=== PATIENT | female | born 1945 | race Caucasian/White ===

== ENCOUNTER → 2016-04-14 | Outpatient (CLI) | payer OTHER, MEDICARE | END | disposition home or self-care (01) | LOC: C.LABSPEC 12:03 | PROVIDERS: ATTEND Family Medicine | DX: Z12.11 Encounter for screening for malignant neoplasm of colon (principal) ==

== ENCOUNTER → 2016-05-06 | Outpatient (CLI) | payer OTHER, MEDICARE ==
[2016-05-06 12:06] LABS: HEMATOCRIT 40.7 % (37-47); MEAN CELL VOLUME 87.3 fL (80-100); MEAN CORPUSCULAR HEMOGLOBIN 30.5 pg (25-34); MEAN CORPUSCULAR HGB CONC 34.9 g/dl (32-36); MEAN PLATELET VOLUME 9.5 fL (7.4-10.4); PLATELET COUNT 235 K/uL (130-400); RED BLOOD COUNT 4.66 M/uL (4.2-5.4); WHITE BLOOD COUNT 5.23 K/uL (4.8-10.8)
[2016-05-06 12:32] LABS: ESTIMATED AVERAGE GLUCOSE 140 mg/dl; HA1C FLAG Normal (Normal)
[2016-05-06 12:36] LABS: ALT/SGPT 47 U/L (12-78); AST/SGOT 23 U/L (15-37); BLOOD UREA NITROGEN 12 mg/dl (7-18); BUN/CREATININE RATIO 11.2 (10-20); CALCIUM 8.8 mg/dl (8.5-10.1); CARBON DIOXIDE 27 mmol/L (21-32); CHLORIDE 103 mmol/L (98-107); CHOLESTEROL 115 mg/dl (0-200); GLUCOSE 96 mg/dl (70-99); POTASSIUM 3.7 mmol/L (3.5-5.1); SODIUM 139 mmol/L (136-145)
[2016-05-06 12:38] LABS: ALB/GLOB RATIO 1.1 (0.9-2); ALKALINE PHOSPHATASE 70 U/L (45-117); CHOLESTEROL/HDL RATIO 3.3; HDL CHOLESTEROL 35 mg/dl; LDL CHOLESTEROL CALCULATED 5 mg/dl; TRIGLYCERIDES 373 mg/dl (0-150); VERY LOW DENSITY LIPOPROT CALC 75 mg/dl
== END | disposition home or self-care (01) ==
LOC: C.LAB 11:13
PROVIDERS: ATTEND Nurse Practitioner Adult Health
DX: E11.9 Type 2 diabetes mellitus without complications (principal); Z11.59 Encounter for screening for other viral diseases; E78.5 Hyperlipidemia, unspecified; I10 Essential (primary) hypertension

== ENCOUNTER → 2016-10-16 | Outpatient (CLI) | payer OTHER, MEDICARE ==
[2016-10-16 12:39] LABS: ALT/SGPT 27 U/L (12-78); AST/SGOT 15 U/L (15-37); BLOOD UREA NITROGEN 23 mg/dl (7-18); BUN/CREATININE RATIO 22.8 (10-20); CALCIUM 9.1 mg/dl (8.5-10.1); CARBON DIOXIDE 28 mmol/L (21-32); CHLORIDE 104 mmol/L (98-107); CHOLESTEROL 188 mg/dl (0-200); GLUCOSE 108 mg/dl (70-99); POTASSIUM 3.8 mmol/L (3.5-5.1); SODIUM 140 mmol/L (136-145); TRIGLYCERIDES 524 mg/dl (0-150)
[2016-10-16 12:40] LABS: ESTIMATED AVERAGE GLUCOSE 126 mg/dl; HA1C FLAG Normal (Normal)
[2016-10-16 12:52] LABS: ALB/GLOB RATIO 1.1 (0.9-2); ALKALINE PHOSPHATASE 75 U/L (45-117); CHOLESTEROL/HDL RATIO 4.8; HDL CHOLESTEROL 39 mg/dl; THYROID STIMULATING HORMONE 0.497 uIu/ml (0.300-4.500)
== END | disposition home or self-care (01) ==
LOC: C.LABPBG 09:23
PROVIDERS: ATTEND Family Medicine
DX: E11.9 Type 2 diabetes mellitus without complications (principal)

== ENCOUNTER → 2017-05-15 | Outpatient (CLI) | payer OTHER, MEDICARE ==
[2017-05-15 12:53] LABS: ALBUMIN 3.9 gm/dl (3.4-5.0); ALT/SGPT 31 U/L (12-78); AST/SGOT 15 U/L (15-37); BLOOD UREA NITROGEN 27 mg/dl (7-18); CALCIUM 9.1 mg/dl (8.5-10.1); CARBON DIOXIDE 26 mmol/L (21-32); CREATININE 1.27 mg/dl (0.60-1.20); GLUCOSE 112 mg/dl (70-99); POTASSIUM 3.7 mmol/L (3.5-5.1); SODIUM 137 mmol/L (136-145)
[2017-05-15 12:59] LABS: HEMOGLOBIN A1C 5.9 % (4.5-5.6)
[2017-05-15 13:03] LABS: ALKALINE PHOSPHATASE 93 U/L (45-117); CHOLESTEROL 115 mg/dl (0-200); LDL CHOLESTEROL CALCULATED 30 mg/dl; TOTAL PROTEIN 7.8 gm/dl (6.4-8.2)
== END | disposition home or self-care (01) ==
LOC: C.LABPBG 08:41
PROVIDERS: ATTEND Family Medicine
DX: E11.9 Type 2 diabetes mellitus without complications (principal); I10 Essential (primary) hypertension; E78.5 Hyperlipidemia, unspecified

== ENCOUNTER → 2017-05-16 | Outpatient (CLI) | payer OTHER, MEDICARE ==
[2017-05-16 16:01] LABS: CREATININE RANDOM URINE 90.2 mg/dl
== END | disposition home or self-care (01) ==
LOC: C.LABSPEC 09:34
PROVIDERS: ATTEND Family Medicine
DX: E11.9 Type 2 diabetes mellitus without complications (principal); I10 Essential (primary) hypertension; E78.5 Hyperlipidemia, unspecified

== ENCOUNTER → 2017-06-06 | Outpatient (CLI) | payer OTHER, MEDICARE ==
[2017-06-06 14:52] LABS: BLOOD UREA NITROGEN 19 mg/dl (7-18); CALCIUM 9.1 mg/dl (8.5-10.1); CARBON DIOXIDE 28 mmol/L (21-32); CREATININE 1.17 mg/dl (0.60-1.20); GLUCOSE 121 mg/dl (70-99); POTASSIUM 4.1 mmol/L (3.5-5.1); SODIUM 140 mmol/L (136-145)
== END | disposition home or self-care (01) ==
LOC: C.LABPBG 07:55
PROVIDERS: ATTEND Family Medicine
DX: E11.9 Type 2 diabetes mellitus without complications (principal); I10 Essential (primary) hypertension

== ENCOUNTER 2022-05-14 11:27 | Inpatient (IN) ==
[2022-05-14] MEDS ORDERED: SODIUM CHLORIDE 0.9% 500 ML IV ONE ×2 (12:00→14:46)
[2022-05-14] MEDS ORDERED: OPTIRAY 320 500ml IV ONE (12:13)
[2022-05-14 12:18] LABS: iSTAT Creatinine 1.2 mg/dl (0.6-1.3); iSTAT Hemoglobin 13.9 g/dl (12.0-16.0); iSTAT Ionized Calcium 1.15 mmol/l (1.12-1.32); iSTAT Potassium 3.6 mmol/L (3.3-5.0)
--- NOTE | 2022-05-14 12:21 | Emergency Department Note ---
Impression & Plan Hypertensive emergency, Dementia, Nausea & vomiting ED Provider Note NAME: DON JACKSON AGE: 77 SEX: F ARRIVES VIA: Walk-In INFORMANT: Patient ED PROVIDER(S): Dewey Baumann MD CHIEF COMPLAINT: Confusion PLAN: Disposition: Admit MEDICAL DECISION MAKING: The patient is a pleasant 77-year-old woman with a past medical history of vascular dementia, type 2 diabetes, resistant hypertension, CKD, hallucinations, depression, anxiety who presents to the emergency department via walk-in, accompanied by her daughter for evaluation of acute change in mental status where they were eating breakfast after going to a routine appointment with the patient's jackspooler and they were eating breakfast and suddenly the patient had difficulty using her fork and grabbed it backwards simply bumping it against her mouth and then was putting her hand directly into the food. She had trouble speaking/finding words and had some mumbling all has never happened before even with her vascular dementia. The patient's daughter then reported that she was concerned and wanted to get her to the hospital and so had to help her get up and she walked very slowly putting a lot of her weight leaning against her daughter but was able to ambulate. The patient follows with neurology for her dementia/vascular dementia and on recent visit in February note was made of change in walking, feeling wobbly trouble holding things in intermittent episodes where she cannot think of what to do next. She also has had more action tremors. On arrival to emergency department the patient is no acute distress, afebrile blood pressure 210s/70s and vital signs otherwise stable. She appears clinically dry. She has mild word finding difficulty/aphasia and difficulty explaining her symptoms. She has no focal extremity weakness or difficulty with coordination though does exhibit difficulty in following commands but with prompting and redirection is able to follow commands. Given the patient's acute change from her baseline per her daughter a stroke alert was activated to expedite her evaluation. However in the interim while going to CT and following IV fluid ration her symptoms resolved completely and had returned to her baseline. CT of the head and CT of the head and neck were otherwise unremarkable for acute findings. Chronic lacunar infarct of left thalamus is noted. EKG without overt acute ischemia. CXR negative for acute cardiopulmonary process. WBC, H/H and platelets within normal limits. Chemistry without metabolic acidosis. Creatinine 1.25, improved from prior values. Electrolytes without significant abnormality though magnesium 1.7, low normal and IV repletion provided. High-sensitivity troponin 4.6, within normal limits. UA without convincing evidence of infection. Covid-19 RNA, NAAT negative. Biofire negative. Unfortunate, the patient had a return of her confusion/symptoms and also nausea and vomiting and blood pressure was noted to again elevated to the 220s/100s. She was treated with additional hydration, APAP, Pepcid, Zofran. However, signficantly elevated blood pressure did persist Given the recurrence of the patient's symptoms which seem to possibly correlate with her spikes in her blood pressure suspicion for hypertensive roseanna rgency/hypertensive encephalopathy. The patient was additionally treated with IV Vasotec. Case was discussed with Dr. Ramos, [facility] [place] hospital[place], who will evaluate the patient for admission. Further management per admitting team. Triage Nursing notes reviewed and agree them. Prior/outside medical records reviewed Vital Signs: reviewed Differential diagnosis: Infection, dehydration, metabolic abnormality, hypo/hyperglycemia, electrolyte disturbance, anemia, hypoxia, cardiac sources, intracerebral event, toxicologic, neurologic, as well as other pathologies. ER treatment provided: See below. Diagnostics interpreted by me: ECG: Normal sinus rhythm, 74 bpm, no ectopy, no overt ST elevation or depression, QTc 495, QRS 76 Cardiac Monitoring: An order for continuous cardiac monitoring was placed and demonstrated Normal sinus rhythm, 74 bpm, no ectopy. Laboratory studies: See below Imaging studies: See below Consultation(s): Dr. Ramos [facility] [place] hospitalist. HPI: The patient is a pleasant 77-year-old woman with a past medical history of vascular dementia, type 2 diabetes, resistant hypertension, CKD, hallucinations, depression, anxiety who presents to the emergency department via walk-in, accompanied by her daughter for evaluation of acute change in mental status where they were eating breakfast after going to a routine appointment with the patient's jackspooler and they were eating breakfast and suddenly the patient had difficulty using her fork and grabbed it backwards simply bumping it against her mouth and then was putting her hand directly into the food. She had trouble speaking/finding words and had some mumbling all has never happened before even with her vascular dementia. The patient's daughter then reported that she was concerned and wanted to get her to the hospital and so had to help her get up and she walked very slowly putting a lot of her weight leaning against her daughter but was able to ambulate. ROS: See above HPI for pertinent positives & negatives. A total of 10 systems reviewed and were otherwise negative. VITALS:See Below PHYSICAL EXAMINATION: GENERAL: Awake, alert, well-appearing, in no distress HENT: Normocephalic, atraumatic. Oropharynx with dry mucous membranes and otherwise unremarkable. EYES: Normal conjunctiva. Sclera non-icteric. EOMI. No nystamgus. PEARRL. NECK: Supple. No nuchal rigidity. FROM. No JVD. RESPIRATORY: Clear to auscultation. CARDIAC: Regular rate, normal rhythm. Extremities warm and well perfused. Pulses equal. ABDOMEN: Soft, non-distended. No tenderness to palpation. No rebound or guarding. No masses. RECTAL: Deferred. MUSCULOSKELETAL: Chest examination reveals no tenderness. The back is symmetrical on inspection without obvious abnormality. There is no CVA tenderness to palpation. No joint edema. LOWER EXTREMITIES: Calves are equal size bilaterally and non-tender. No edema. No discoloration. NEURO: Mild word finding difficulty/aphasia and difficulty explaining her symptoms. She has no focal extremity weakness or difficulty with coordination though does exhibit difficulty in following commands but with prompting and redirection is able to follow commands. SKIN: No rash or jaundice noted. ED COURSE: Critical Care: I have personally spent greater than 75 minutes of critical care time in the direct management of this patient. This includes bedside care, interpretation of diagnostic studies, and testing, discussion with consultants, patient, and family members, and other required patient management activities. This 75 minutes is in excess of all separately billable procedures. Dewey Baumann MD Past Med/Surg History Medical History AK (actinic keratosis) Allergic rhinitis Anemia due to chronic kidney disease Benign essential hypertension Chronic kidney disease, stage 4 (severe) Chronic sinusitis COVID-19 Depression with anxiety Diabetic neuropathy History of breast cancer (2004) L BREAST S/P LUMPECTOMY IN 2004, S/P TAMOXIFEN X3.5YRS. Hyperkalemia Hyperlipidemia Hyperuricemia Mild cognitive impairment Resistant hypertension Stage 3b chronic kidney disease Type 2 diabetes mellitus Urinary incontinence Vitamin B12 deficiency Vitamin D deficiency Surgical History History of cholecystectomy (2009) ONSET: SEP 2009 History of hysterectomy STILL W/ OVARIES History of lumpectomy (2004) BREAST SURGERY LUMPECTOMY FEB 2004, MAY 2004; L-BREAST History of sinus surgery History of tubal ligation Family History Father Coronary heart disease Dementia Family/Other Cardiac disorder SIBLING Mother Breast cancer Diabetes Dementia Denies family history of Colon cancer Ovarian cancer Prostate cancer Myocardial infarction Lung cancer Colorectal cancer Social History Smoking Status: Never smoker Second Hand Exposure: No; Hx Alcohol Use: No Hx Substance Use: No Preferred Language: Mohawk Communication Ability: Effective Visual Impairment: No Limitations Hearing Ability: Normal Relocation Associate Required: No Beliefs That Will Affect Care: None marital status: Current Living Situation: Family Current Living Situation Comment: LIVES WITH SON AND DAUGHTER [place] current occupational status: retired Feels Safe at Home: Yes Childhood Exposure to Second-Hand Smoke: Yes Diet Comment: regular caffeine: Yes (coffee) during the past year weight has: remained stable Dental Care, Regularly: Yes Physical Activity Frequency: Does not Exercise Seatbelt Use: always Sunscreen Use: No Allergies Allergies Allergy/AdvReac Type Severity Reaction Status Date / Time guaifenesin [From Mucinex] Allergy Unknown unknown Verified 05/14/22 17:45 fenofibrate Allergy Rash Verified 05/14/22 17:45 Home Meds Home Medications Medication Instructions Recorded Confirmed multivitamin (Daily Multi-Vitamin 1 tab PO DAILY 08/31/19 05/14/22 tablet) famotidine 20 mg tablet 20 mg PO QPM 08/07/20 05/14/22 atorvastatin 10 mg tablet 10 mg PO HS 11/23/21 05/14/22 cetirizine 10 mg tablet 10 mg PO QPM 11/23/21 05/14/22 valsartan 160 mg tablet 320 mg PO QAM 11/27/21 05/14/22 Previous Rx's Medication Instructions Recorded lancets 33 gauge (OneTouch Delica #100 ea 08/07/20 Lancets) gabapentin 300 mg capsule 300 mg PO TID #270 caps 12/19/20 metoprolol tartrate 100 mg tablet 100 mg PO BID #180 tabs 09/25/21 cholecalciferol (vitamin D3) 50 50 mcg PO TID #90 caps 11/13/21 mcg (2,000 unit) capsule pen needle, diabetic 32 gauge x #100 ea 11/26/21" (BD Yohana 2nd Gen Pen Needle) furosemide 20 mg tablet (Lasix) 20 mg PO BID #180 tabs 12/10/21 allopurinol 100 mg tablet 100 mg PO QAM #90 tabs 01/28/22 insulin glargine 100 unit/mL (3 30 unit (0.3 mL) subcut QAM #15 mL 01/28/22 mL) subcutaneous pen (Lantus Solostar U-100 Insulin) venlafaxine 37.5 mg 37.5 mg PO QAM #90 caps 04/30/22 capsule,extended release 24 hr Results & Data (ED) Vital Signs Vital Signs - 24 hr 05/14/22 11:31 05/14/22 11:45 05/14/22 12:17 Temperature 36.8 C Temperature Source Temporal Artery Scan Pulse Rate 69 68 Pulse Rate [Apical] Pulse Rate from SpO2 Sensor Pulse Rhythm [Apical] Respiratory Rate 18 Respiratory Effort / Characteristics Respiratory Depth Blood Pressure 210/78 H Blood Pressure [Left Arm] Blood Pressure Mean 122 Blood Pressure Mean [Left Arm] Pulse Oximetry 94 96 Oxygen Delivery Method Room Air Room Air Oxygen Flow Rate 0 Sepsis Recent Fever Within 48 Hours No Sepsis New/Unexplained Change in Mental Status No Sepsis Action Taken by Nursing No Action Required 05/14/22 11:43 05/14/22 11:49 05/14/22 11:49 Temperature Temperature Source Pulse Rate 68 67 Pulse Rate [Apical] Pulse Rate from SpO2 Sensor 67 Pulse Rhythm [Apical] Respiratory Rate 18 18 Respiratory Effort / Characteristics Respiratory Depth Blood Pressure Blood Pressure [Left Arm] Blood Pressure Mean 135 Blood Pressure Mean [Left Arm] Pulse Oximetry 96 Oxygen Delivery Method Oxygen Flow Rate Sepsis Recent Fever Within 48 Hours Sepsis New/Unexplained Change in Mental Status Sepsis Action Taken by Nursing 05/14/22 11:50 05/14/22 12:13 05/14/22 12:14 Temperature Temperature Source Pulse Rate 72 77 Pulse Rate [Apical] Pulse Rate from SpO2 Sensor 73 Pulse Rhythm [Apical] Respiratory Rate 28 H 14 Respiratory Effort / Characteristics Respiratory Depth Blood Pressure 207/89 H Blood Pressure [Left Arm] Blood Pressure Mean 128 Blood Pressure Mean [Left Arm] Pulse Oximetry 93 Oxygen Delivery Method Oxygen Flow Rate Sepsis Recent Fever Within 48 Hours Sepsis New/Unexplained Change in Mental Status Sepsis Action Taken by Nursing 05/14/22 12:14 05/14/22 12:30 05/14/22 12:30 Temperature Temperature Source Pulse Rate 81 72 Pulse Rate [Apical] Pulse Rate from SpO2 Sensor 81 72 Pulse Rhythm [Apical] Respiratory Rate 33 H 25 H Respiratory Effort / Characteristics Respiratory Depth Blood Pressure 190/87 H Blood Pressure [Left Arm] Blood Pressure Mean 121 Blood Pressure Mean [Left Arm] Pulse Oximetry 94 91 Oxygen Delivery Method Oxygen Flow Rate Sepsis Recent Fever Within 48 Hours Sepsis New/Unexplained Change in Mental Status Sepsis Action Taken by Nursing 05/14/22 13:00 05/14/22 13:00 05/14/22 13:30 Temperature Temperature Source Pulse Rate 68 67 Pulse Rate [Apical] Pulse Rate from SpO2 Sensor 68 Pulse Rhythm [Apical] Respiratory Rate 24 21 Respiratory Effort / Characteristics Respiratory Depth Blood Pressure 194/80 H Blood Pressure [Left Arm] Blood Pressure Mean 118 Blood Pressure Mean [Left Arm] Pulse Oximetry 92 Oxygen Delivery Method Oxygen Flow Rate Sepsis Recent Fever Within 48 Hours Sepsis New/Unexplained Change in Mental Status Sepsis Action Taken by Nursing 05/14/22 13:31 05/14/22 13:31 05/14/22 15:38 Temperature Temperature Source Pulse Rate 67 Pulse Rate [Apical] 64 Pulse Rate from SpO2 Sensor Pulse Rhythm [Apical] Regular Respiratory Rate 23 22 Respiratory Effort / Characteristics Non-Labored Spontaneous Respiratory Depth Normal Blood Pressure 205/72 H Blood Pressure [Left Arm] 224/94 H Blood Pressure Mean 116 Blood Pressure Mean [Left Arm] 137 Pulse Oximetry 92 Oxygen Delivery Method Oxygen Flow Rate Sepsis Recent Fever Within 48 Hours Sepsis New/Unexplained Change in Mental Status Sepsis Action Taken by Nursing 05/14/22 15:30 05/14/22 15:51 05/14/22 15:51 Temperature Temperature Source Pulse Rate 66 64 Pulse Rate [Apical] Pulse Rate from SpO2 Sensor 67 Pulse Rhythm [Apical] Respiratory Rate 20 21 Respiratory Effort / Characteristics Respiratory Depth Blood Pressure 252/113 H Blood Pressure [Left Arm] Blood Pressure Mean 159 Blood Pressure Mean [Left Arm] Pulse Oximetry 91 92 Oxygen Delivery Method Oxygen Flow Rate Sepsis Recent Fever Within 48 Hours Sepsis New/Unexplained Change in Mental Status Sepsis Action Taken by Nursing 05/14/22 16:00 05/14/22 16:03 05/14/22 16:01 Temperature Temperature Source Pulse Rate 62 65 64 Pulse Rate [Apical] Pulse Rate from SpO2 Sensor 62 62 Pulse Rhythm [Apical] Respiratory Rate 25 H 21 Respiratory Effort / Characteristics Respiratory Depth Blood Pressure Blood Pressure [Left Arm] Blood Pressure Mean Blood Pressure Mean [Left Arm] Pulse Oximetry 92 91 Oxygen Delivery Method Oxygen Flow Rate Sepsis Recent Fever Within 48 Hours Sepsis New/Unexplained Change in Mental Status Sepsis Action Taken by Nursing 05/14/22 16:01 05/14/22 16:10 05/14/22 16:10 Temperature Temperature Source Pulse Rate 64 Pulse Rate [Apical] Pulse Rate from SpO2 Sensor 62 Pulse Rhythm [Apical] Respiratory Rate 13 Respiratory Effort / Characteristics Respiratory Depth Blood Pressure 237/79 H 218/75 H Blood Pressure [Left Arm] Blood Pressure Mean 131 122 Blood Pressure Mean [Left Arm] Pulse Oximetry 95 Oxygen Delivery Method Nasal Cannula Oxygen Flow Rate 2 Sepsis Recent Fever Within 48 Hours Sepsis New/Unexplained Change in Mental Status Sepsis Action Taken by Nursing 05/14/22 16:16 05/14/22 16:16 05/14/22 16:30 Temperature Temperature Source Pulse Rate 65 67 Pulse Rate [Apical] Pulse Rate from SpO2 Sensor 65 67 Pulse Rhythm [Apical] Respiratory Rate 22 21 Respiratory Effort / Characteristics Respiratory Depth Blood Pressure 199/82 H Blood Pressure [Left Arm] Blood Pressure Mean 121 Blood Pressure Mean [Left Arm] Pulse Oximetry 95 96 Oxygen Delivery Method Oxygen Flow Rate Sepsis Recent Fever Within 48 Hours Sepsis New/Unexplained Change in Mental Status Sepsis Action Taken by Nursing 05/14/22 16:31 05/14/22 16:31 05/14/22 16:45 Temperature Temperature Source Pulse Rate 68 69 Pulse Rate [Apical] Pulse Rate from SpO2 Sensor 68 69 Pulse Rhythm [Apical] Respiratory Rate 8 L 21 Respiratory Effort / Characteristics Respiratory Depth Blood Pressure 191/78 H Blood Pressure [Left Arm] Blood Pressure Mean 115 Blood Pressure Mean [Left Arm] Pulse Oximetry 97 95 Oxygen Delivery Method Oxygen Flow Rate Sepsis Recent Fever Within 48 Hours Sepsis New/Unexplained Change in Mental Status Sepsis Action Taken by Nursing 05/14/22 16:45 05/14/22 17:00 05/14/22 17:00 Temperature Temperature Source Pulse Rate 70 Pulse Rate [Apical] Pulse Rate from SpO2 Sensor 70 Pulse Rhythm [Apical] Respiratory Rate 16 Respiratory Effort / Characteristics Respiratory Depth Blood Pressure 191/75 H 192/72 H Blood Pressure [Left Arm] Blood Pressure Mean 113 112 Blood Pressure Mean [Left Arm] Pulse Oximetry 97 Oxygen Delivery Method Oxygen Flow Rate Sepsis Recent Fever Within 48 Hours Sepsis New/Unexplained Change in Mental Status Sepsis Action Taken by Nursing 05/14/22 17:15 05/14/22 17:15 05/14/22 17:30 Temperature Temperature Source Pulse Rate 74 76 Pulse Rate [Apical] Pulse Rate from SpO2 Sensor Pulse Rhythm [Apical] Respiratory Rate 19 19 Respiratory Effort / Characteristics Respiratory Depth Blood Pressure 176/72 H Blood Pressure [Left Arm] Blood Pressure Mean 106 Blood Pressure Mean [Left Arm] Pulse Oximetry Oxygen Delivery Method Oxygen Flow Rate Sepsis Recent Fever Within 48 Hours Sepsis New/Unexplained Change in Mental Status Sepsis Action Taken by Nursing 05/14/22 17:31 05/14/22 17:31 05/14/22 17:45 Temperature Temperature Source Pulse Rate 75 Pulse Rate [Apical] Pulse Rate from SpO2 Sensor Pulse Rhythm [Apical] Respiratory Rate 19 Respiratory Effort / Characteristics Respiratory Depth Blood Pressure 182/65 H 167/71 H Blood Pressure [Left Arm] Blood Pressure Mean 104 103 Blood Pressure Mean [Left Arm] Pulse Oximetry Oxygen Delivery Method Oxygen Flow Rate Sepsis Recent Fever Within 48 Hours Sepsis New/Unexplained Change in Mental Status Sepsis Action Taken by Nursing 05/14/22 17:45 05/14/22 18:00 05/14/22 18:00 Temperature Temperature Source Pulse Rate 75 77 Pulse Rate [Apical] Pulse Rate from SpO2 Sensor 77 Pulse Rhythm [Apical] Respiratory Rate 18 20 Respiratory Effort / Characteristics Respiratory Depth Blood Pressure 170/68 H Blood Pressure [Left Arm] Blood Pressure Mean 102 Blood Pressure Mean [Left Arm] Pulse Oximetry 94 Oxygen Delivery Method Oxygen Flow Rate Sepsis Recent Fever Within 48 Hours Sepsis New/Unexplained Change in Mental Status Sepsis Action Taken by Nursing Laboratory Data Attestation: I reviewed the patient's lab results. 05/14/22 12:01 05/14/22 12:01 Lab Results 05/14/22 05/14/22 05/14/22 Range/Units 11:59 12:01 12:01 WBC 4.93 (4.8-10.8) K/ul RBC 4.35 (4.20-5.40) M/uL Hgb 13.9 (12.0-16.0) g/dl POC Hgb (12.0-16.0) g/dl Hct 39.5 (37.0-47.0) % POC Hct (37-47) % MCV 90.8 (80.0-100.0) fL MCH 32.0 (25.0-34.0) pg MCHC 35.2 (32.0-36.0) g/dL RDW Std Deviation 40.9 (36.4-46.3) fL RDW Coeff of Jesus 12.3 (11.5-14.5) % Plt Count 189 (130-400) K/uL MPV 9.6 (9.4-12.4) fL Immature Gran % (Auto) 0.2 % Neut % (Auto) 56.4 % Lymph % (Auto) 34.1 % Norman % (Auto) 6.5 % Eos % (Auto) 2.2 % Baso % (Auto) 0.6 % Neut # (Auto) 2.78 (1.40-6.50) K/uL Lymph # (Auto) 1.68 (1.2-3.4) K/uL Norman # (Auto) 0.32 (0.11-0.59) K/uL Eos # (Auto) 0.11 (0-0.50) K/uL Baso # (Auto) 0.03 (0-0.2) K/uL Immature Gran # (Auto) 0.01 (0.01-0.20) K/uL PT 10.9 (9.0-12.0) Seconds INR 1.0 (0.9-1.1) APTT 27.1 (21.0-31.0) Seconds PTT Ratio 1.0 POC Sodium (135-144) mmol/L Sodium (136-145) mmol/L POC Potassium (3.3-5.0) mmol/L Potassium (3.5-5.1) mmol/L POC Chloride (101-112) mmol/L Chloride (98-107) mmol/L Carbon Dioxide (21-32) mmol/L POC Total CO2 (24-31) mmol/L Anion Gap (3-11) POC Anion Gap (16-25) mmol/L POC BUN (7-18) mg/dl BUN (6-23) mg/dl Creatinine (0.6-1.2) mg/dl POC Creatinine (0.6-1.3) mg/dl Est Cr Clr Drug Dosing ml/min Est GFR ( Amer) ml/min Est GFR (Non-Af Amer) ml/min BUN/Creatinine Ratio (10-20) Glucose (70-99(Fasting)) mg/dl POC Glucose 222 H (70-99) mg/dl POC Glucose (other) (70-99) mg/dl Calcium (8.6-10.3) mg/dl POC Ioniz Calcium Leslie (1.12-1.32) mmol/l Phosphorus (2.5-4.9) mg/dl Magnesium (1.7-2.4) mg/dl Total Bilirubin (0.2-1.0) mg/dl AST (13-39) U/L ALT (7-52) U/L Alkaline Phosphatase (34-104) U/L Troponin I High Sens (0-14) pg/ml Total Protein (6.0-8.3) gm/dl Albumin (3.4-5.0) gm/dl Globulin (2.5-4.0) gm/dl Albumin/Globulin Ratio (0.9-2) Lipase (11-82) U/L Urine Color Urine Appearance (Clear) Urine pH (4.5-7.5) Ur Specific Keller (1.000-1.030) Urine Protein (Negative) Urine Glucose (UA) (Negative) Urine Ketones (Negative) Urine Blood (Negative) Urine Nitrite (Negative) Urine Bilirubin (Negative) Urine Urobilinogen (Negative) Ur Leukocyte Esterase (Negative) Urine WBC (Auto) (0-5) /hpf Urine RBC (Auto) (0-4) /hpf U Hyaline Cast (Auto) (0-5) /lpf U Epithel Cells (Auto) (0-5) /lpf Urine Bacteria (Auto) (Negative) Adenovirus (PCR) (NotDetected) B. pertussis DNA (PCR) (NotDetected) B.parapertussis DNA PCR (NotDetected) C. pneumoniae DNA (PCR) (NotDetected) Coronavirus OC43 (PCR) (NotDetected) Coronavirus HKU1 (PCR) (NotDetected) Coronavirus 229E (PCR) (NotDetected) SARS-CoV-2 (PCR) (NotDetected) Coronavirus NL63 (PCR) (NotDetected) Human Metapneumovir PCR (NotDetected) Influenza Type A (PCR) (NotDetected) Influenza Type B (PCR) (NotDetected) M. pneumoniae (PCR) (NotDetected) Parainfluenza 1 (PCR) (NotDetected) Parainfluenza 2 (PCR) (NotDetected) Parainfluenza 3 (PCR) (NotDetected) Parainfluenza 4 (PCR) (NotDetected) RSV (PCR) (NotDetected) Entero/Rhino (PCR) (NotDetected) SARS-CoV-2, RNA, NAAT (NEGATIVE) 05/14/22 05/14/22 05/14/22 Range/Units 12:01 12:06 12:19 WBC (4.8-10.8) K/ul RBC (4.20-5.40) M/uL Hgb (12.0-16.0) g/dl POC Hgb 13.9 (12.0-16.0) g/dl Hct (37.0-47.0) % POC Hct 41 (37-47) % MCV (80.0-100.0) fL MCH (25.0-34.0) pg MCHC (32.0-36.0) g/dL RDW Std Deviation (36.4-46.3) fL RDW Coeff of Jesus (11.5-14.5) % Plt Count (130-400) K/uL MPV (9.4-12.4) fL Immature Gran % (Auto) % Neut % (Auto) % Lymph % (Auto) % Norman % (Auto) % Eos % (Auto) % Baso % (Auto) % Neut # (Auto) (1.40-6.50) K/uL Lymph # (Auto) (1.2-3.4) K/uL Norman # (Auto) (0.11-0.59) K/uL Eos # (Auto) (0-0.50) K/uL Baso # (Auto) (0-0.2) K/uL Immature Gran # (Auto) (0.01-0.20) K/uL PT (9.0-12.0) Seconds INR (0.9-1.1) APTT (21.0-31.0) Seconds PTT Ratio POC Sodium 139 (135-144) mmol/L Sodium 138 (136-145) mmol/L POC Potassium 3.6 (3.3-5.0) mmol/L Potassium 3.8 (3.5-5.1) mmol/L POC Chloride 102 (101-112) mmol/L Chloride 105 (98-107) mmol/L Carbon Dioxide 25 (21-32) mmol/L POC Total CO2 24 (24-31) mmol/L Anion Gap 8 (3-11) POC Anion Gap 18.0 (16-25) mmol/L POC BUN 19 H (7-18) mg/dl BUN 20 (6-23) mg/dl Creatinine 1.25 H (0.6-1.2) mg/dl POC Creatinine 1.2 (0.6-1.3) mg/dl Est Cr Clr Drug Dosing 44.6 ml/min Est GFR ( Amer) 48.1 ml/min Est GFR (Non-Af Amer) 41.5 ml/min BUN/Creatinine Ratio 16.0 (10-20) Glucose 229 H (70-99(Fasting)) mg/dl POC Glucose (70-99) mg/dl POC Glucose (other) 232 H (70-99) mg/dl Calcium 8.9 (8.6-10.3) mg/dl POC Ioniz Calcium Leslie 1.15 (1.12-1.32) mmol/l Phosphorus 3.5 (2.5-4.9) mg/dl Magnesium 1.7 (1.7-2.4) mg/dl Total Bilirubin 0.6 (0.2-1.0) mg/dl AST 19 (13-39) U/L ALT 20 (7-52) U/L Alkaline Phosphatase 77 (34-104) U/L Troponin I High Sens 4.6 (0-14) pg/ml Total Protein 6.7 (6.0-8.3) gm/dl Albumin 3.9 (3.4-5.0) gm/dl Globulin 2.8 (2.5-4.0) gm/dl Albumin/Globulin Ratio 1.4 (0.9-2) Lipase (11-82) U/L Urine Color Urine Appearance (Clear) Urine pH (4.5-7.5) Ur Specific Keller (1.000-1.030) Urine Protein (Negative) Urine Glucose (UA) (Negative) Urine Ketones (Negative) Urine Blood (Negative) Urine Nitrite (Negative) Urine Bilirubin (Negative) Urine Urobilinogen (Negative) Ur Leukocyte Esterase (Negative) Urine WBC (Auto) (0-5) /hpf Urine RBC (Auto) (0-4) /hpf U Hyaline Cast (Auto) (0-5) /lpf U Epithel Cells (Auto) (0-5) /lpf Urine Bacteria (Auto) (Negative) Adenovirus (PCR) (NotDetected) B. pertussis DNA (PCR) (NotDetected) B.parapertussis DNA PCR (NotDetected) C. pneumoniae DNA (PCR) (NotDetected) Coronavirus OC43 (PCR) (NotDetected) Coronavirus HKU1 (PCR) (NotDetected) Coronavirus 229E (PCR) (NotDetected) SARS-CoV-2 (PCR) (NotDetected) Coronavirus NL63 (PCR) (NotDetected) Human Metapneumovir PCR (NotDetected) Influenza Type A (PCR) (NotDetected) Influenza Type B (PCR) (NotDetected) M. pneumoniae (PCR) (NotDetected) Parainfluenza 1 (PCR) (NotDetected) Parainfluenza 2 (PCR) (NotDetected) Parainfluenza 3 (PCR) (NotDetected) Parainfluenza 4 (PCR) (NotDetected) RSV (PCR) (NotDetected) Entero/Rhino (PCR) (NotDetected) SARS-CoV-2, RNA, NAAT NEGATIVE (NEGATIVE) 05/14/22 05/14/22 05/14/22 Range/Units 13:28 14:03 14:51 WBC (4.8-10.8) K/ul RBC (4.20-5.40) M/uL Hgb (12.0-16.0) g/dl POC Hgb (12.0-16.0) g/dl Hct (37.0-47.0) % POC Hct (37-47) % MCV (80.0-100.0) fL MCH (25.0-34.0) pg MCHC (32.0-36.0) g/dL RDW Std Deviation (36.4-46.3) fL RDW Coeff of Jesus (11.5-14.5) % Plt Count (130-400) K/uL MPV (9.4-12.4) fL Immature Gran % (Auto) % Neut % (Auto) % Lymph % (Auto) % Norman % (Auto) % Eos % (Auto) % Baso % (Auto) % Neut # (Auto) (1.40-6.50) K/uL Lymph # (Auto) (1.2-3.4) K/uL Norman # (Auto) (0.11-0.59) K/uL Eos # (Auto) (0-0.50) K/uL Baso # (Auto) (0-0.2) K/uL Immature Gran # (Auto) (0.01-0.20) K/uL PT (9.0-12.0) Seconds INR (0.9-1.1) APTT (21.0-31.0) Seconds PTT Ratio POC Sodium (135-144) mmol/L Sodium (136-145) mmol/L POC Potassium (3.3-5.0) mmol/L Potassium (3.5-5.1) mmol/L POC Chloride (101-112) mmol/L Chloride (98-107) mmol/L Carbon Dioxide (21-32) mmol/L POC Total CO2 (24-31) mmol/L Anion Gap (3-11) POC Anion Gap (16-25) mmol/L POC BUN (7-18) mg/dl BUN (6-23) mg/dl Creatinine (0.6-1.2) mg/dl POC Creatinine (0.6-1.3) mg/dl Est Cr Clr Drug Dosing ml/min Est GFR ( Amer) ml/min Est GFR (Non-Af Amer) ml/min BUN/Creatinine Ratio (10-20) Glucose (70-99(Fasting)) mg/dl POC Glucose 199 H (70-99) mg/dl POC Glucose (other) (70-99) mg/dl Calcium (8.6-10.3) mg/dl POC Ioniz Calcium Leslie (1.12-1.32) mmol/l Phosphorus (2.5-4.9) mg/dl Magnesium (1.7-2.4) mg/dl Total Bilirubin (0.2-1.0) mg/dl AST (13-39) U/L ALT (7-52) U/L Alkaline Phosphatase (34-104) U/L Troponin I High Sens (0-14) pg/ml Total Protein (6.0-8.3) gm/dl Albumin (3.4-5.0) gm/dl Globulin (2.5-4.0) gm/dl Albumin/Globulin Ratio (0.9-2) Lipase 30 (11-82) U/L Urine Color Yellow Urine Appearance Clear (Clear) Urine pH 5.5 (4.5-7.5) Ur Specific Keller 1.018 (1.000-1.030) Urine Protein 1+ H (Negative) Urine Glucose (UA) Negative (Negative) Urine Ketones Negative (Negative) Urine Blood Negative (Negative) Urine Nitrite Negative (Negative) Urine Bilirubin Negative (Negative) Urine Urobilinogen Negative (Negative) Ur Leukocyte Esterase Negative (Negative) Urine WBC (Auto) 0 (0-5) /hpf Urine RBC (Auto) 0-4 (0-4) /hpf U Hyaline Cast (Auto) 0 (0-5) /lpf U Epithel Cells (Auto) 5-10 H (0-5) /lpf Urine Bacteria (Auto) Negative (Negative) Adenovirus (PCR) (NotDetected) B. pertussis DNA (PCR) (NotDetected) B.parapertussis DNA PCR (NotDetected) C. pneumoniae DNA (PCR) (NotDetected) Coronavirus OC43 (PCR) (NotDetected) Coronavirus HKU1 (PCR) (NotDetected) Coronavirus 229E (PCR) (NotDetected) SARS-CoV-2 (PCR) (NotDetected) Coronavirus NL63 (PCR) (NotDetected) Human Metapneumovir PCR (NotDetected) Influenza Type A (PCR) (NotDetected) Influenza Type B (PCR) (NotDetected) M. pneumoniae (PCR) (NotDetected) Parainfluenza 1 (PCR) (NotDetected) Parainfluenza 2 (PCR) (NotDetected) Parainfluenza 3 (PCR) (NotDetected) Parainfluenza 4 (PCR) (NotDetected) RSV (PCR) (NotDetected) Entero/Rhino (PCR) (NotDetected) SARS-CoV-2, RNA, NAAT (NEGATIVE) 05/14/22 Range/Units 15:33 WBC (4.8-10.8) K/ul RBC (4.20-5.40) M/uL Hgb (12.0-16.0) g/dl POC Hgb (12.0-16.0) g/dl Hct (37.0-47.0) % POC Hct (37-47) % MCV (80.0-100.0) fL MCH (25.0-34.0) pg MCHC (32.0-36.0) g/dL RDW Std Deviation (36.4-46.3) fL RDW Coeff of Jesus (11.5-14.5) % Plt Count (130-400) K/uL MPV (9.4-12.4) fL Immature Gran % (Auto) % Neut % (Auto) % Lymph % (Auto) % Norman % (Auto) % Eos % (Auto) % Baso % (Auto) % Neut # (Auto) (1.40-6.50) K/uL Lymph # (Auto) (1.2-3.4) K/uL Norman # (Auto) (0.11-0.59) K/uL Eos # (Auto) (0-0.50) K/uL Baso # (Auto) (0-0.2) K/uL Immature Gran # (Auto) (0.01-0.20) K/uL PT (9.0-12.0) Seconds INR (0.9-1.1) APTT (21.0-31.0) Seconds PTT Ratio POC Sodium (135-144) mmol/L Sodium (136-145) mmol/L POC Potassium (3.3-5.0) mmol/L Potassium (3.5-5.1) mmol/L POC Chloride (101-112) mmol/L Chloride (98-107) mmol/L Carbon Dioxide (21-32) mmol/L POC Total CO2 (24-31) mmol/L Anion Gap (3-11) POC Anion Gap (16-25) mmol/L POC BUN (7-18) mg/dl BUN (6-23) mg/dl Creatinine (0.6-1.2) mg/dl POC Creatinine (0.6-1.3) mg/dl Est Cr Clr Drug Dosing ml/min Est GFR ( Amer) ml/min Est GFR (Non-Af Amer) ml/min BUN/Creatinine Ratio (10-20) Glucose (70-99(Fasting)) mg/dl POC Glucose (70-99) mg/dl POC Glucose (other) (70-99) mg/dl Calcium (8.6-10.3) mg/dl POC Ioniz Calcium Leslie (1.12-1.32) mmol/l Phosphorus (2.5-4.9) mg/dl Magnesium (1.7-2.4) mg/dl Total Bilirubin (0.2-1.0) mg/dl AST (13-39) U/L ALT (7-52) U/L Alkaline Phosphatase (34-104) U/L Troponin I High Sens (0-14) pg/ml Total Protein (6.0-8.3) gm/dl Albumin (3.4-5.0) gm/dl Globulin (2.5-4.0) gm/dl Albumin/Globulin Ratio (0.9-2) Lipase (11-82) U/L Urine Color Urine Appearance (Clear) Urine pH (4.5-7.5) Ur Specific Keller (1.000-1.030) Urine Protein (Negative) Urine Glucose (UA) (Negative) Urine Ketones (Negative) Urine Blood (Negative) Urine Nitrite (Negative) Urine Bilirubin (Negative) Urine Urobilinogen (Negative) Ur Leukocyte Esterase (Negative) Urine WBC (Auto) (0-5) /hpf Urine RBC (Auto) (0-4) /hpf U Hyaline Cast (Auto) (0-5) /lpf U Epithel Cells (Auto) (0-5) /lpf Urine Bacteria (Auto) (Negative) Adenovirus (PCR) Not Detected (NotDetected) B. pertussis DNA (PCR) Not Detected (NotDetected) B.parapertussis DNA PCR Not Detected (NotDetected) C. pneumoniae DNA (PCR) Not Detected (NotDetected) Coronavirus OC43 (PCR) Not Detected (NotDetected) Coronavirus HKU1 (PCR) Not Detected (NotDetected) Coronavirus 229E (PCR) Not Detected (NotDetected) SARS-CoV-2 (PCR) Not Detected (NotDetected) Coronavirus NL63 (PCR) Not Detected (NotDetected) Human Metapneumovir PCR Not Detected (NotDetected) Influenza Type A (PCR) Not Detected (NotDetected) Influenza Type B (PCR) Not Detected (NotDetected) M. pneumoniae (PCR) Not Detected (NotDetected) Parainfluenza 1 (PCR) Not Detected (NotDetected) Parainfluenza 2 (PCR) Not Detected (NotDetected) Parainfluenza 3 (PCR) Not Detected (NotDetected) Parainfluenza 4 (PCR) Not Detected (NotDetected) RSV (PCR) Not Detected (NotDetected) Entero/Rhino (PCR) Not Detected (NotDetected) SARS-CoV-2, RNA, NAAT (NEGATIVE) Administered Medications Nicardipine HCl 25 mg/ Sodium (Chloride) 250 mls @ 100 mls/hr IV .Q2H30M [facility]; Protocol Stop: 06/13/22 15:59 Last Titration: 05/14/22 17:05 Dose: 10 mg/hr, 100 mls/hr Documented By: Titration: 05/14/22 16:40 Dose: 7.5 mg/hr, 75 mls/hr Documented By: Admin: 05/14/22 16:06 Dose: 5 mg/hr, 50 mls/hr Documented By: ROBERTO Co-signed By: NANETTE Discontinued Medications Sodium Chloride (Nss) 500 mls @ 999 mls/hr IV .Q31M ONE Stop: 05/14/22 12:30 Last Infusion: 05/14/22 13:14 Dose: 0 mls/hr Documented By: Admin: 05/14/22 12:21 Dose: 999 mls/hr Documented By: AM Acetaminophen (Ofirmev) 1,000 mg in 100 mls @ 400 mls/hr IV NOW STA Stop: 05/14/22 14:59 Last Infusion: 05/14/22 15:13 Dose: 0 mls/hr Documented By: Admin: 05/14/22 14:58 Dose: 400 mls/hr Documented By: HS Famotidine (Pepcid 20mg Iv Push) 20 mg in 5 mls @ 2.5 mls/min IV NOW STA Stop: 05/14/22 14:46 Last Admin: 05/14/22 14:58 Dose: 2.5 mls/min Documented By: HS Sodium Chloride (Nss) 500 mls @ 999 mls/hr IV .Q31M ONE Stop: 05/14/22 15:16 Last Infusion: 05/14/22 14:48 Dose: 0 mls/hr Documented By: Admin: 05/14/22 14:00 Dose: 999 mls/hr Documented By: AM Magnesium Sulfate/Dextrose (Magnesium Sulfate / D5w) 1 gm in 100 mls @ 100 mls/hr IV NOW STA Stop: 05/14/22 15:48 Last Infusion: 05/14/22 16:19 Dose: 0 mls/hr Documented By: Admin: 05/14/22 14:58 Dose: 100 mls/hr Documented By: HS Enalaprilat 0.625 mg/ Syringe 10 mls @ 2 mls/min IV NOW STA Stop: 05/14/22 15:28 Last Admin: 05/14/22 15:57 Dose: 2 mls/min Documented By: HS Ioversol (Optiray 320 500ml) 108 ml IV ONCE ONE Stop: 05/14/22 12:14 Last Admin: 05/14/22 12:14 Dose: 108 ml Documented By: UTF Ondansetron HCl (Ondansetron Inj 2 Mg/Ml 2 Ml Vial) 4 mg IV NOW STA Stop: 05/14/22 14:46 Last Admin: 05/14/22 14:58 Dose: 4 mg Documented By: HS Imaging Data Radiologist's Impression: Head CT 05/14/22 11:[address] OF THE BRAIN; CT ANGIOGRAM OF THE BRAIN; CT ANGIOGRAM OF THE NECK CLINICAL HISTORY: Neurological deficit. Stroke like symptoms. COMPARISON STUDY: CT of the brain dated 03/31/2022. TECHNIQUE: Unenhanced axial CT scan of the brain is performed. Subsequently, following the IV administration of 108 of Optiray 320, CT angiogram of the head and neck was performed from the aortic arch to the vertex. Images are reviewed in the axial, sagittal, and coronal planes. 3-D MIPS images are created and assessed. IV contrast was administered without complication. All measurements were calculated based on NASCET criteria. A dose lowering technique was utilized adhering to the principles of ALARA. CT DOSE: 1224.85 mGy.cm FINDINGS: Brain parenchyma: There is age-related involutional change noting mild to mo derate subcortical and periventricular microangiopathic disease. A chronic lacunar infarct is noted in the left thalamus. There is no hemorrhage, mass effect, or evidence of acute territorial ischemia by CT criteria. There is no evidence of enhancing mass lesion on the angiogram phase images. The ventricles, sulci, and cisterns are prominent secondary to involutional change. Claros-white matter differentiation is preserved. No extra-axial fluid collection is seen. Thoracic aorta: There is atherosclerotic calcification of the thoracic aorta. Visualized portions of the thoracic aorta are normal in caliber. The aortic arch demonstrates bovine variant anatomy. Right carotid arterial system: The right common carotid artery is widely patent, as are the right internal and external carotid arteries. Minimal calcified plaque is seen in the carotid bulb. Left carotid arterial system: The left common carotid artery is widely patent, as are the left internal and external carotid arteries. Calcified plaque is seen in the carotid bulb. Vertebral arteries: The vertebral arteries are widely patent bilaterally and codominant. Subclavian arteries: Widely patent bilaterally. Intracranial vasculature: There is atherosclerotic calcification of the cavernous carotid and vertebral arteries. The internal carotid arteries are patent at the skull base, as are the anterior and middle cerebral arteries bilaterally. The vertebrobasilar system and posterior cerebral arteries are widely patent. The vertebral arteries are codominant. There is a left posterior communicating artery. There is no aneurysm, high-grade stenosis, or focal vessel cut off seen throughout the intracranial circulation. Jugular veins: Patent bilaterally. Dural sinuses: Patent. Lung apices: Partially visualized upper lobe lung parenchyma appears clear. Soft tissues: The visualized pharyngeal soft tissues are normal in appearance noting angiographic phase technique. The oropharyngeal airway appears widely patent. Enlarged/heterogeneous thyroid goiter is noted. The salivary glands are normal in appearance. No cervical lymphadenopathy is seen. Skeletal structures: The skeletal structures are osteopenic. The calvarium appears intact. The cervical spine is maintained noting multilevel spondylosis. No lytic or blastic lesion is seen. Orbits: The bony orbits are intact. Orbital contents are normal as visualized noting bilateral ocular lens implants. Sinuses and mastoids: There is subtotal opacification of the right maxillary antrum. Thickening and sclerosis of the sinus wall indicates chronicity. Mild mucosal thickening is noted in the right ethmoid sinuses. The remaining paranasal sinuses are clear. The mastoid air cells are well pneumatized. IMPRESSION: 1. There is no hemorrhage, mass effect, or evidence of acute territorial ischemia by CT criteria. 2. Unremarkable CT angiogram of the brain. 3. Unremarkable CT angiogram of the neck. 4. Thyroid goiter. ACT 112: Negative or not required by law. Electronically signed by: Jah Godinez M.D. 05/14/2022 12:25 PM Head CTA 05/14/22 11:[address] OF THE BRAIN; CT ANGIOGRAM OF THE BRAIN; CT ANGIOGRAM OF THE NECK CLINICAL HISTORY: Neurological deficit. Stroke like symptoms. COMPARISON STUDY: CT of the brain dated 03/31/2022. TECHNIQUE: Unenhanced axial CT scan of the brain is performed. Subsequently, following the IV administration of 108 of Optiray 320, CT angiogram of the head and neck was performed from the aortic arch to the vertex. Images are reviewed in the axial, sagittal, and coronal planes. 3-D MIPS images are created and assessed. IV contrast was administered without complication. All measurements were calculated based on NASCET criteria. A dose lowering technique was utilized adhering to the principles of ALARA. CT DOSE: 1224.85 mGy.cm FINDINGS: Brain parenchyma: There is age-related involutional change noting mild to moderate subcortical and periventricular microangiopathic disease. A chronic lacunar infarct is noted in the left thalamus. There is no hemorrhage, mass effect, or evidence of acute territorial ischemia by CT criteria. There is no evidence of enhancing mass lesion on the angiogram phase images. The ventricles, sulci, and cisterns are prominent secondary to involutional change. Claros-white matter differentiation is preserved. No extra-axial fluid collection is seen. Thoracic aorta: There is atherosclerotic calcification of the thoracic aorta. Visualized portions of the thoracic aorta are normal in caliber. The aortic arch demonstrates bovine variant anatomy. Right carotid arterial system: The right common carotid artery is widely patent, as are the right internal and external carotid arteries. Minimal calcified plaque is seen in the carotid bulb. Left carotid arterial system: The left common carotid artery is widely patent, as are the left internal and external carotid arteries. Calcified plaque is seen in the carotid bulb. Vertebral arteries: The vertebral arteries are widely patent bilaterally and codominant. Subclavian arteries: Widely patent bilaterally. Intracranial vasculature: There is atherosclerotic calcification of the cavernou s carotid and vertebral arteries. The internal carotid arteries are patent at the skull base, as are the anterior and middle cerebral arteries bilaterally. The vertebrobasilar system and posterior cerebral arteries are widely patent. The vertebral arteries are codominant. There is a left posterior communicating artery. There is no aneurysm, high-grade stenosis, or focal vessel cut off seen throughout the intracranial circulation. Jugular veins: Patent bilaterally. Dural sinuses: Patent. Lung apices: Partially visualized upper lobe lung parenchyma appears clear. Soft tissues: The visualized pharyngeal soft tissues are normal in appearance noting angiographic phase technique. The oropharyngeal airway appears widely patent. Enlarged/heterogeneous thyroid goiter is noted. The salivary glands are normal in appearance. No cervical lymphadenopathy is seen. Skeletal structures: The skeletal structures are osteopenic. The calvarium appears intact. The cervical spine is maintained noting multilevel spondylosis. No lytic or blastic lesion is seen. Orbits: The bony orbits are intact. Orbital contents are normal as visualized noting bilateral ocular lens implants. Sinuses and mastoids: There is subtotal opacification of the right maxillary antrum. Thickening and sclerosis of the sinus wall indicates chronicity. Mild mucosal thickening is noted in the right ethmoid sinuses. The remaining paranasal sinuses are clear. The mastoid air cells are well pneumatized. IMPRESSION: 1. There is no hemorrhage, mass effect, or evidence of acute territorial ischemia by CT criteria. 2. Unremarkable CT angiogram of the brain. 3. Unremarkable CT angiogram of the neck. 4. Thyroid goiter. ACT 112: Negative or not required by law. Electronically signed by: Jah Godinez M.D. 05/14/2022 12:25 PM Neck CTA 05/14/22 11:[address] OF THE BRAIN; CT ANGIOGRAM OF THE BRAIN; CT ANGIOGRAM OF THE NECK CLINICAL HISTORY: Neurological deficit. Stroke like symptoms. COMPARISON STUDY: CT of the brain dated 03/31/2022. TECHNIQUE: Unenhanced axial CT scan of the brain is performed. Subsequently, following the IV administration of 108 of Optiray 320, CT angiogram of the head and neck was performed from the aortic arch to the vertex. Images are reviewed in the axial, sagittal, and coronal planes. 3-D MIPS images are created and ass essed. IV contrast was administered without complication. All measurements were calculated based on NASCET criteria. A dose lowering technique was utilized adhering to the principles of ALARA. CT DOSE: 1224.85 mGy.cm FINDINGS: Brain parenchyma: There is age-related involutional change noting mild to moderate subcortical and periventricular microangiopathic disease. A chronic lacunar infarct is noted in the left thalamus. There is no hemorrhage, mass effect, or evidence of acute territorial ischemia by CT criteria. There is no evidence of enhancing mass lesion on the angiogram phase images. The ventricles, sulci, and cisterns are prominent secondary to involutional change. Claros-white matter differentiation is preserved. No extra-axial fluid collection is seen. Thoracic aorta: There is atherosclerotic calcification of the thoracic aorta. Visualized portions of the thoracic aorta are normal in caliber. The aortic arch demonstrates bovine variant anatomy. Right carotid arterial system: The right common carotid artery is widely patent, as are the right internal and external carotid arteries. Minimal calcified plaque is seen in the carotid bulb. Left carotid arterial system: The left common carotid artery is widely patent, as are the left internal and external carotid arteries. Calcified plaque is seen in the carotid bulb. Vertebral arteries: The vertebral arteries are widely patent bilaterally and c odominant. Subclavian arteries: Widely patent bilaterally. Intracranial vasculature: There is atherosclerotic calcification of the cavernous carotid and vertebral arteries. The internal carotid arteries are patent at the skull base, as are the anterior and middle cerebral arteries bilaterally. The vertebrobasilar system and posterior cerebral arteries are widely patent. The vertebral arteries are codominant. There is a left posterior communicating artery. There is no aneurysm, high-grade stenosis, or focal vessel cut off seen throughout the intracranial circulation. Jugular veins: Patent bilaterally. Dural sinuses: Patent. Lung apices: Partially visualized upper lobe lung parenchyma appears clear. Soft tissues: The visualized pharyngeal soft tissues are normal in appearance noting angiographic phase technique. The oropharyngeal airway appears widely patent. Enlarged/heterogeneous thyroid goiter is noted. The salivary glands are normal in appearance. No cervical lymphadenopathy is seen. Skeletal structures: The skeletal structures are osteopenic. The calvarium appears intact. The cervical spine is maintained noting multilevel spondylosis. No lytic or blastic lesion is seen. Orbits: The bony orbits are intact. Orbital contents are normal as visualized noting bilateral ocular lens implants. Sinuses and mastoids: There is subtotal opacification of the right maxillary antrum. Thickening and sclerosis of the sinus wall indicates chronicity. Mild mu cosal thickening is noted in the right ethmoid sinuses. The remaining paranasal sinuses are clear. The mastoid air cells are well pneumatized. IMPRESSION: 1. There is no hemorrhage, mass effect, or evidence of acute territorial ischem ia by CT criteria. 2. Unremarkable CT angiogram of the brain. 3. Unremarkable CT angiogram of the neck. 4. Thyroid goiter. ACT 112: Negative or not required by law. Electronically signed by: Jah Godinez M.D. 05/14/2022 12:25 PM Chest X-Ray 05/14/22 12:03 SINGLE VIEW CHEST CLINICAL HISTORY: Strokelike symptoms. FINDINGS: An AP, portable, upright chest radiograph is compared to study dated 11/23/2021. The cardiomediastinal silhouette is top normal for projection noting atherosclerotic calcification of the thoracic aorta. Chronic interstitial thickening is similar to previous. Scarring/atelectasis is noted at the lung bases. No airspace consolidation or large pleural effusion is identified. No pneumothorax is seen. The skeletal structures are osteopenic. There are chronic/healed left-sided rib fractures. IMPRESSION: No acute cardiopulmonary abnormality. ACT 112: Negative or not required by law. Electronically signed by: Jah Godinez M.D. 05/14/2022 1:02 PM Discharge Plan Visit Data Chief Complaint: Neuro Symptoms/Deficit Stated Complaint: RIGHT ARM NUMBNESS, CAN'T WALK ED Provider: Dewey Baumann Discharge Problem: Hypertensive emergency, Dementia, Nausea & vomiting Forms Stand Alone Forms: My [facility] Prescriptions Prescriptions: No Action gabapentin 300 mg capsule 300 mg PO TID Qty: 270 2RF metoprolol tartrate 100 mg tablet 100 mg PO BID Qty: 180 3RF cholecalciferol (vitamin D3) 50 mcg (2,000 unit) capsule 50 mcg PO TID Qty: 90 8RF (DME) pen needle, diabetic [BD Yohana 2nd Gen Pen Needle] 32 gauge x 5/32" needle See Rx Instructions .Route Qty: 100 5RF Rx Instructions: to be used with insulin daily valsartan 160 mg tablet 320 mg PO QAM furosemide [Lasix] 20 mg tablet 20 mg PO BID Qty: 180 1RF insulin glargine [Lantus Solostar U-100 Insulin] 100 unit/mL (3 mL) insulin pen 30 unit subcut QAM Qty: 15 2RF allopurinol 100 mg tablet 100 mg PO QAM Qty: 90 3RF venlafaxine 37.5 mg capsule,extended release 24hr 37.5 mg PO QAM Qty: 90 3RF multivitamin [Daily Multi-Vitamin] Tablet 1 tab PO DAILY famotidine 20 mg tablet 20 mg PO QPM (DME) lancets [OneTouch Delica Lancets] 33 gauge misc See Dose Instructions .ROUTE .MEDSUPPLY Qty: 100 0RF Rx Instructions: test once daily. Dx E11.9 cetirizine 10 mg Tablet 10 mg PO QPM atorvastatin 10 mg tablet 10 mg PO HS Referrals Referrals: Shelia Boyd DO [Primary Care Provider] -
[2022-05-14 12:25] LABS: Albumin Level 3.9 gm/dl (3.4-5.0); Bilirubin,Total 0.6 mg/dl (0.2-1.0); Calcium 8.9 mg/dl (8.6-10.3); Magnesium 1.7 mg/dl (1.7-2.4); Potassium 3.8 mmol/L (3.5-5.1)
[2022-05-14 12:27] LABS: Partial Thromboplastin Time 27.1 Seconds (21.0-31.0); Prothrombin Time 10.9 Seconds (9.0-12.0)
--- NOTE | 2022-05-14 12:27 | CT Scan Report ---
UNENHANCED CT OF THE BRAIN; CT ANGIOGRAM OF THE BRAIN; CT ANGIOGRAM OF THE NECK CLINICAL HISTORY: Neurological deficit. Stroke like symptoms. COMPARISON STUDY: CT of the brain dated 03/31/2022. TECHNIQUE: Unenhanced axial CT scan of the brain is performed. Subsequently, following the IV adminis tration of 108 of [address] 320, CT angiogram of the head and neck was performed from the aortic arch t o the vertex. Images are reviewed in the axial, sagittal, and coronal planes. 3-D MIPS images are cre ated and assessed. IV contrast was administered without complication. All measurements were calculate d based on NASCET criteria. A dose lowering technique was utilized adhering to the principles of ALA RA. CT DOSE: 1224.85 mGy.cm FINDINGS: Brain parenchyma: There is age-related involutional change noting mild to moderate subcortical and pe riventricular microangiopathic disease. A chronic lacunar infarct is noted in the left thalamus. Ther e is no hemorrhage, mass effect, or evidence of acute territorial ischemia by CT criteria. There is n o evidence of enhancing mass lesion on the angiogram phase images. The ventricles, sulci, and cistern s are prominent secondary to involutional change. Claros-white matter differentiation is preserved. No extra-axial fluid collection is seen. Thoracic aorta: There is atherosclerotic calcification of the thoracic aorta. Visualized portions of the thoracic aorta are normal in caliber. The aortic arch demonstrates bovine variant anatomy. Right carotid arterial system: The right common carotid artery is widely patent, as are the right int ernal and external carotid arteries. Minimal calcified plaque is seen in the carotid bulb. Left carotid arterial system: The left common carotid artery is widely patent, as are the left internet marketing director al and external carotid arteries. Calcified plaque is seen in the carotid bulb. Vertebral arteries: The vertebral arteries are widely patent bilaterally and codominant. Subclavian arteries: Widely patent bilaterally. Intracranial vasculature: There is atherosclerotic calcification of the cavernous carotid and vertebr al arteries. The internal carotid arteries are patent at the skull base, as are the anterior and midd le cerebral arteries bilaterally. The vertebrobasilar system and posterior cerebral arteries are wide ly patent. The vertebral arteries are codominant. There is a left posterior communicating artery. The re is no aneurysm, high-grade stenosis, or focal vessel cut off seen throughout the intracranial circ ulation. Jugular veins: Patent bilaterally. Dural sinuses: Patent. Lung apices: Partially visualized upper lobe lung parenchyma appears clear. Soft tissues: The visualized pharyngeal soft tissues are normal in appearance noting angiographic pha se technique. The oropharyngeal airway appears widely patent. Enlarged/heterogeneous thyroid goiter i s noted. The salivary glands are normal in appearance. No cervical lymphadenopathy is seen. Skeletal structures: The skeletal structures are osteopenic. The calvarium appears intact. The cervic al spine is maintained noting multilevel spondylosis. No lytic or blastic lesion is seen. Orbits: The bony orbits are intact. Orbital contents are normal as visualized noting bilateral ocular lens implants. Sinuses and mastoids: There is subtotal opacification of the right maxillary antrum. Thickening and s clerosis of the sinus wall indicates chronicity. Mild mucosal thickening is noted in the right ethmoi d sinuses. The remaining paranasal sinuses are clear. The mastoid air cells are well pneumatized. IMPRESSION: 1. There is no hemorrhage, mass effect, or evidence of acute territorial ischemia by CT criteria. 2. Unremarkable CT angiogram of the brain. 3. Unremarkable CT angiogram of the neck. 4. Thyroid goiter. ACT 112: Negative or not required by law. Electronically signed by: Jah Godinez M.D. 05/14/2022 12:25 PM
[2022-05-14 12:31] LABS: Albumin Globulin Ratio 1.4 (0.9-2); Creatinine Clr Calc Pharmacy 44.6 ml/min; Est GFR (African American) 48.1 ml/min; Est GFR (Non-African American) 41.5 ml/min; Globulin 2.8 gm/dl (2.5-4.0); Phosphorus 3.5 mg/dl (2.5-4.9); Total Protein 6.7 gm/dl (6.0-8.3)
[2022-05-14 12:34] LABS: Troponin I High Sensitivity 4.6 pg/ml (0-14)
[2022-05-14 12:35] LABS: Basophils # (auto) 0.03 K/uL (0-0.2); Basophils % (auto) 0.6 %; Eosinophils # (auto) 0.11 K/uL (0-0.50); Eosinophils % (auto) 2.2 %; Hematocrit (blood only) 39.5 % (37.0-47.0); Hemoglobin 13.9 g/dl (12.0-16.0); Immature Granulocytes # (auto) 0.01 K/uL (0.01-0.20); Immature Granulocytes % (auto) 0.2 %; Lymphocytes # (auto) 1.68 K/uL (1.2-3.4); Lymphocytes % (auto) 34.1 %; Mean Corpuscular Hgb Conc 35.2 g/dL (32.0-36.0); Mean Corpuscular Volume 90.8 fL (80.0-100.0); Mean Platelet Volume 9.6 fL (9.4-12.4); Monocytes # (auto) 0.32 K/uL (0.11-0.59); Monocytes % (auto) 6.5 %; Neutrophils # (auto) 2.78 K/uL (1.40-6.50); Neutrophils % (auto) 56.4 %; Platelet Count 189 K/uL (130-400); RDW Coefficient of Variation 12.3 % (11.5-14.5); RDW Standard Deviation 40.9 fL (36.4-46.3); Red Blood Count 4.35 M/uL (4.20-5.40); White Blood Count 4.93 K/ul (4.8-10.8)
--- NOTE | 2022-05-14 13:03 | XRay Report ---
SINGLE VIEW CHEST CLINICAL HISTORY: Strokelike symptoms. FINDINGS: An AP, portable, upright chest radiograph is compared to study dated 11/23/2021. The cardio mediastinal silhouette is top normal for projection noting atherosclerotic calcification of the thora cic aorta. Chronic interstitial thickening is similar to previous. Scarring/atelectasis is noted at t he lung bases. No airspace consolidation or large pleural effusion is identified. No pneumothorax is seen. The skeletal structures are osteopenic. There are chronic/healed left-sided rib fractures. IMPRESSION: No acute cardiopulmonary abnormality. ACT 112: Negative or not required by law. Electronically signed by: Jah Godinez M.D. 05/14/2022 1:02 PM
[2022-05-14 13:44] LABS: Appearance Urine Clear (Clear); Bacteria Urine Automated Negative (Negative); Bilirubin Urine Negative (Negative); Blood Urine Negative (Negative); Cast Urine Automated 0 /lpf (0-5); Color Urine Yellow; Glucose Urine UA Negative (Negative); Ketones Urine Negative (Negative); Leukocyte Esterase Urine Negative (Negative); Nitrite Urine Negative (Negative); Protein Urine 1+ (Negative); RBC Urine Automated 0-4 /hpf (0-4); Specific Gravity Urine 1.018 (1.000-1.030); Urobilinogen Urine Negative (Negative); WBC Urine Automated 0 /hpf (0-5); pH Urine 5.5 (4.5-7.5)
[2022-05-14] MEDS ORDERED: FAMOTIDINE 20MG IV PUSH 20 MG/5 ML SYR IV STA (14:45)
[2022-05-14] MEDS ORDERED: ONDANSETRON INJ 2 MG/ML 2 ML VIAL IV STA (14:45)
[2022-05-14] MEDS ORDERED: ACETAMINOPHEN 1,000 MG/100 ML VIAL IV STA (14:45)
[2022-05-14] MEDS ORDERED: MAGNESIUM SULFATE / D5W 1 GM/100 ML BAG IV STA (14:49)
--- NOTE | 2022-05-14 15:12 | Electrocardiogram Report ---
Test Reason : Blood Pressure : / mmHG Vent. Rate : 074 BPM Atrial Rate : 074 BPM P-R Int : 152 ms QRS Dur : 076 ms QT Int : 446 ms P-R-T Axes : 034 023 053 degrees QTc Int : 495 ms Poor data quality, interpretation may be adversely affected Normal sinus rhythm Normal ECG When compared with ECG of 23-NOV-2021 15:07, No significant change was found Confirmed by Pasquale Gray ([id number]) on 05/14/2022 3:11:44 PM Referred By: REFERRED SELF Confirmed By:Pasquale Gray
[2022-05-14] MEDS ORDERED: ENALAPRILAT 0.625 MG in SYRINGE 9.5 ML IV STA (15:24)
--- NOTE | 2022-05-14 15:43 | History & Physical Report ---
Date of Service May 14, 2022 Assessment & Plan (1) Hypertensive emergency: Plan: Hypertensive emergency Initially presented with dysarthria and hypertension rapidly increasing to the 200s. She did not have any focal weakness, but did have confusion, difficulty using a spoon, and dysarthria concerning for stroke Trope negative, no leukocytosis, glucose 199, - CT-H/CTA/H-N: 1. There is no hemorrhage, mass effect, or evidence of acute territorial ischemia by CT criteria. 2. Unremarkable CT angiogram of the brain. 3. Unremarkable CT angiogram of the neck.4. Thyroid goiter. CXR without acute findings BB limited by HR high 50s/lwo 60s in ER. Took metoprolol BID in ER. At time of consult patient was seen, blood pressure had increased to 250 systolic. Vasotec ordered, pending dose. Patient was symptomatic, with intermittent confusion and vomiting. Following Vasotec blood pressure slightly improved but still remained over 220 and nicardipine drip was ordered. Pressure did improve to 160s systolic gradually, and had complete resolution of all sympt oms with pressure improvement. On reassessment she had no nausea/vomiting, no confusion, and was moving all extremities appropriately with good coordination. Suspect her presentation was due to hypertensive emergency. MRI is pending for stroke eval. Did discuss the risk of watershed infarct with aggressive blood pressure control with patient and her daughter before initiating nicardipine drip; however due to her lack of focal neuro findings and worsening since with blood pressure felt that deferring permissive hypertension and treating as hypertensive emergency was appropriate. 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 and continued Vascular Dementia - Current symptoms different from baseline .Tx HTN encephalopathy as noted - Delerium precautions Patient greatly improved with blood pressure control, answers questions appropriately and is oriented at time of ER reassessment DVT prophylaxis: SCDs Disposition: PCU Diet: Type II DM CODE STATUS: Full code (2) Stage 3b chronic kidney disease: (3) Dementia: (4) Type 2 diabetes mellitus: (5) History of breast cancer: History of Present Illness Primary Care Provider: DO Anand Orourkekimberly Mireles is a 77-year-old female with a past medical history of dementia, DM 2, hypertension, CKD who presents with sudden onset confusion and disorientation where she was using a fork incorrectly, and then putting her hand into the food rather than the fork and had difficulty speaking. Patient has history of vascular dementia, but her current symptoms were sudden onset and starkly different from her baseline. No leukocytosis Hemoglobin normal Creatinine with fluctuating baseline, appears around 1.4 most recently. Admitting creatinine 1.25 Allergies Allergy/AdvReac Type Severity Reaction Status Date / Time guaifenesin [From Mucinex] Allergy Unknown unknown Verified 05/14/22 17:45 fenofibrate Allergy Rash Verified 05/14/22 17:45 Home Medications Medication Instructions Recorded Confirmed Type multivitamin (Daily Multi-Vitamin 1 tab PO DAILY 08/31/19 05/14/22 History tablet) famotidine 20 mg tablet 20 mg PO QPM 08/07/20 05/14/22 History lancets 33 gauge (OneTouch Delica #100 ea 08/07/20 02/19/22 Rx Lancets) gabapentin 300 mg capsule 300 mg PO TID #270 caps 12/19/20 05/14/22 Rx metoprolol tartrate 100 mg tablet 100 mg PO BID #180 tabs 09/25/21 05/14/22 Rx cholecalciferol (vitamin D3) 50 50 mcg PO TID #90 caps 11/13/21 05/14/22 Rx mcg (2,000 unit) capsule atorvastatin 10 mg tablet 10 mg PO HS 11/23/21 05/14/22 History cetirizine 10 mg tablet 10 mg PO QPM 11/23/21 05/14/22 History pen needle, diabetic 32 gauge x #100 ea 11/26/21 02/19/22 Rx 5/32" (BD Yohana 2nd Gen Pen Needle) valsartan 160 mg tablet 320 mg PO QAM 11/27/21 05/14/22 History furosemide 20 mg tablet (Lasix) 20 mg PO BID #180 tabs 12/10/21 05/14/22 Rx allopurinol 100 mg tablet 100 mg PO QAM #90 tabs 01/28/22 05/14/22 Rx insulin glargine 100 unit/mL (3 30 unit (0.3 mL) subcut QAM #15 mL 01/28/22 05/14/22 Rx mL) subcutaneous pen (Lantus Solostar U-100 Insulin) venlafaxine 37.5 mg 37.5 mg PO QAM #90 caps 04/30/22 05/14/22 Rx capsule,extended release 24 hr Past Med/Surg History Medical History AK (actinic keratosis) Allergic rhinitis Anemia due to chronic kidney disease Benign essential hypertension Chronic kidney disease, stage 4 (severe) Chronic sinusitis COVID-19 Depression with anxiety Diabetic neuropathy History of breast cancer (2004) L BREAST S/P LUMPECTOMY IN 2004, S/P TAMOXIFEN X3.5YRS. Hyperkalemia Hyperlipidemia Hyperuricemia Mild cognitive impairment Resistant hypertension Stage 3b chronic kidney disease Type 2 diabetes mellitus Urinary incontinence Vitamin B12 deficiency Vitamin D deficiency Surgical History History of cholecystectomy (2009) ONSET: SEP 2009 History of hysterectomy STILL W/ OVARIES History of lumpectomy (2004) BREAST SURGERY LUMPECTOMY FEB 2004, MAY 2004; L-BREAST History of sinus surgery History of tubal ligation Family History Father Coronary heart disease Dementia Family/Other Cardiac disorder SIBLING Mother Breast cancer Diabetes Dementia Denies family history of Colon cancer Ovarian cancer Prostate cancer Myocardial infarction Lung cancer Colorectal cancer Social History Smoking Status: Never smoker Second Hand Exposure: No; Hx Alcohol Use: No Hx Substance Use: No Preferred Language: Lithuanian Communication Ability: Effective Visual Impairment: No Limitations Hearing Ability: Normal Counter Intelligence Technician Required: No Beliefs That Will Affect Care: None marital status: Current Living Situation: Family Current Living Situation Comment: LIVES WITH SON AND DAUGHTER -[place] current occupational status: retired Feels Safe at Home: Yes Childhood Exposure to Second-Hand Smoke: Yes Diet Comment: regular caffeine: Yes (coffee) during the past year weight has: remained stable Dental Care, Regularly: Yes Physical Activity Frequency: Does not Exercise Seatbelt Use: always Sunscreen Use: No Physical Exam Physical Exam: General: On initial assessment appears ill, vomiting, with headache. HEENT: Atraumatic, normocephalic. Pupils equal and reactive to light. Vision and hearing intact Pulm: CTAB A&P. -wheezes, -rales, -rhonchi. Symmetrical chest rise. No increased work of breathing. No respiratory distress. Cardiac: RRR, -mrg. Radial pulses intact and symmetrical. Abdominal: Abdomen soft, nontender, patient nauseous and vomiting On reassessment post Vasotec and nicardipine patient's nausea/vomiting have completely resolved. Appears nondistressed, greatly improved. No headache. No vomiting. No neurodeficits, is oriented to name, place, and year and answers questions appropriately Results & Data Results & Data Vital Signs (Past 12 Hours) Vital Signs Temp Pulse Pulse Resp BP BP Pulse Ox 05/14/22 15:38 64 22 224/94 H 92 05/14/22 13:31 205/72 H 05/14/22 13:31 67 23 05/14/22 13:30 67 21 05/14/22 13:00 68 24 92 05/14/22 13:00 194/80 H 05/14/22 12:30 72 25 H 91 05/14/22 12:30 190/87 H 05/14/22 12:14 81 33 H 94 05/14/22 12:14 207/89 H 05/14/22 12:13 77 14 05/14/22 11:50 72 28 H 93 05/14/22 11:49 67 18 96 05/14/22 11:43 68 18 05/14/22 12:17 96 05/14/22 11:45 68 05/14/22 11:31 36.8 C 69 18 210/78 H 94 O2 Del Method O2 Flow Rate 05/14/22 15:38 05/14/22 13:31 05/14/22 13:31 05/14/22 13:30 05/14/22 13:00 05/14/22 13:00 05/14/22 12:30 05/14/22 12:30 05/14/22 12:14 05/14/22 12:14 05/14/22 12:13 05/14/22 11:50 05/14/22 11:49 05/14/22 11:43 05/14/22 12:17 Room Air 0 05/14/22 11:45 05/14/22 11:31 Room Air PG Care Time/CCT Total # of Minutes Spent Total Time Spent with Patient: Total time spent is greater than 50% in coordination of care (as documented) at patient's floor/unit and/or counseling patient: Coding Level of Care Code 69247 INT INP/OBS CARE 3/75MIN Diagnoses Hypertensive emergency I16.1 Stage 3b chronic kidney disease N18.32 Dementia F03.90 Type 2 diabetes mellitus E11.9 History of breast cancer Z85.3
[2022-05-14] MEDS ORDERED: STAT IV Infusion **Titration per Protocol STA (15:52)
[2022-05-14] MEDS: niCARdipine 25 MG in SODIUM CHLORIDE 0.9% 240 ML IV SCH ×2 (16:06→22:28)
[2022-05-14 16:47] LABS: Adenovirus PCR Not Detected (NotDetected); Bordetella parapertussis PCR Not Detected (NotDetected); Bordetella pertussis PCR Not Detected (NotDetected); Chlamydia pneumoniae PCR Not Detected (NotDetected); Coronavirus 229E PCR Not Detected (NotDetected); Coronavirus CoV-2 (COVID19)PCR Not Detected (NotDetected); Coronavirus HKU1 PCR Not Detected (NotDetected); Coronavirus NL63 PCR Not Detected (NotDetected); Coronavirus OC43PCR Not Detected (NotDetected); Human Metapneumovirus PCR Not Detected (NotDetected); Influenza A PCR Not Detected (NotDetected); Influenza B PCR Not Detected (NotDetected); Mycoplasma pneumoniae PCR Not Detected (NotDetected); Parainfluenza Virus 1 PCR Not Detected (NotDetected); Parainfluenza Virus 2 PCR Not Detected (NotDetected); Parainfluenza Virus 3 PCR Not Detected (NotDetected); Parainfluenza Virus 4 PCR Not Detected (NotDetected); Respiratory Syncytial VirusPCR Not Detected (NotDetected); Rhinovirus/Enterovirus PCR Not Detected (NotDetected)
--- NOTE | 2022-05-14 20:05 | Billing Data ---
Date of Service May 14, 2022 Coding Level of Care Code 43886 CRITICAL CARE 1ST 30-74M Time Spent (min) 40
[2022-05-14] MEDS ORDERED: GLUCOSE 10 TAB/TUBE PO PRN (21:51)
[2022-05-14] MEDS ORDERED: GLUCOSE 40% GEL 15 GM TUBE PO PRN (21:51)
[2022-05-14] MEDS ORDERED: CARBOHYDRATES FOR HYPOGLYCEMIA PO PRN (21:51)
[2022-05-14] MEDS ORDERED: DEXTROSE 50% 50 ML SYRINGE IV PRN (21:51)
[2022-05-14] MEDS ORDERED: GLUCAGON FOR INJ 1 MG VIAL SQ PRN (21:51)
[2022-05-14] MEDS ORDERED: ACETAMINOPHEN 325 MG TAB PO PRN (21:51)
[2022-05-14] MEDS: INSULIN ASPART PER UNIT CHARGE SC SCH (23:41)
--- NOTE | 2022-05-14 23:44 | Magnetic Resonance Report ---
Exam(s): MRI HEAD Without Contrast EXAM: MR Head Without Intravenous Contrast CLINICAL HISTORY: Reason for exam: dysarthria. TECHNIQUE: Magnetic resonance images of the head/brain without intravenous contrast in multiple planes. COMPARISON: No relevant prior studies available. FINDINGS: No acute intracranial hemorrhage. No midline shift or mass effect. The territorial partida-white matter differentiation is maintained throughout. Age-related cerebral volume loss. Periventricular and subcortical white matter T2 signal intensity, consistent with chronic microangiopathy. The visualized orbits appear grossly unremarkable. The calvarium is intact. Mucosal thickening throughout the right maxillary sinus. IMPRESSION: No acute intracranial hemorrhage, midline shift, or mass effect. No acute territorial infarct. Electronically signed by: Samson Clarke MD 05/14/22 23:44 PM
[2022-05-15] MEDS: GABAPENTIN 300 MG CAP PO SCH ×4 (00:04→20:20)
[2022-05-15] MEDS: FAMOTIDINE 20 MG TAB PO SCH ×2 (00:04→20:20)
[2022-05-15] MEDS: CETIRIZINE HCL 10 MG TABLET PO SCH ×2 (00:04→20:21)
[2022-05-15] MEDS: METOPROLOL TARTRATE 100 MG TAB PO SCH ×3 (00:04→20:20)
[2022-05-15] MEDS: FUROSEMIDE 20 MG TAB PO SCH ×3 (00:04→20:20)
[2022-05-15] MEDS: ATORVASTATIN 10 MG TAB PO SCH ×2 (00:04→20:21)
[2022-05-15] MEDS: LANTUS PER UNIT CHARGE SQ SCH ×3 (00:05→20:29)
[2022-05-15] MEDS: niCARdipine 25 MG in SODIUM CHLORIDE 0.9% 240 ML IV SCH ×3 (02:32→17:07)
[2022-05-15 05:03] LABS: Basophils # (auto) 0.03 K/uL (0-0.2); Basophils % (auto) 0.5 %; Eosinophils # (auto) 0.17 K/uL (0-0.50); Hematocrit (blood only) 39.8 % (37.0-47.0); Immature Granulocytes # (auto) 0.02 K/uL (0.01-0.20); Immature Granulocytes % (auto) 0.3 %; Lymphocytes # (auto) 1.74 K/uL (1.2-3.4); Lymphocytes % (auto) 30.4 %; Mean Corpuscular Hemoglobin 31.6 pg (25.0-34.0); Mean Corpuscular Hgb Conc 35.2 g/dL (32.0-36.0); Mean Corpuscular Volume 89.8 fL (80.0-100.0); Mean Platelet Volume 9.7 fL (9.4-12.4); Monocytes # (auto) 0.43 K/uL (0.11-0.59); Monocytes % (auto) 7.5 %; Neutrophils # (auto) 3.34 K/uL (1.40-6.50); Neutrophils % (auto) 58.3 %; Platelet Count 211 K/uL (130-400); RDW Coefficient of Variation 12.5 % (11.5-14.5); RDW Standard Deviation 41.1 fL (36.4-46.3); Red Blood Count 4.43 M/uL (4.20-5.40); White Blood Count 5.73 K/ul (4.8-10.8)
[2022-05-15 05:17] LABS: BUN Creatinine Ratio 14.3 (10-20); Calcium 8.4 mg/dl (8.6-10.3); Creatinine Clr Calc Pharmacy 43.4 ml/min; Potassium 3.5 mmol/L (3.5-5.1)
--- NOTE | 2022-05-15 08:03 | Hospitalist Progress Note ---
Date of Service May 15, 2022 Assessment & Plan (1) Hypertensive emergency: Plan: Initially presented with dysarthria and hypertension rapidly increasing to the 200s systolic. She did not have any focal weakness, but did have confusion, difficulty using a spoon, and dysarthria concerning for stroke Improved with nicardipine drip overnight, blood pressure has remained in the 130s to 140s systolic with hold of nicardipine drip No hemorrhage, mass effect, or evidence of acute territorial ischemia by CT criteria., Unremarkable CT angiogram of the brain/neck, brain MRI without acute intracranial hemorrhage or acute infarct CXR without acute findings Echo 55-60% Did evaluate for renal artery stenosis with renal ultrasound, no evidence of such Renal and and aldosterone levels pending Continue home valsartan, beta-soledad Added amlodipine 5 mg daily, has been on amlodipine in the past with complaints of leg swelling however in the setting of resistant hypertension we will trial 5 mg dosing and perhaps Oni camille if dependent edema develops (2) Stage 3b chronic kidney disease: Plan: Baseline creatinine 1.41.5, creatinine today 4/5 of 1.19 Continue valsartan, Lasix, allopurinol (3) Dementia: Plan: Symptoms resolved back to baseline, delirium precautions (4) Type 2 diabetes mellitus: Plan: Basal/bolus insulin, with adjustment as needed based on qACHS checks Plan DVT prophylaxis: SCDs Disposition: PCU Diet: Type II DM CODE STATUS: Full code Continue to monitor your blood pressure overnight off of nicardipine drip, physical and Occupational Therapy evaluations to help with dispo planning Admission and Anticipated Discharge Date Admission Date: May 14, 2022 Subjective Patient without any acute events overnight. Blood pressures 798505 systolic off of nicardipine today. Today she is somewhat forgetful of short-term memory events but much more alert and oriented, no complaints of sensory or motor deficits, no trouble with swallowing, no blurry or double vision. Also spoke with patient's daughter, who reports she is overall much better today compared to yesterday. They follow with nephrology for high blood pressures, and while she has had blood pressures in the 190s in the past, she has never had a blood pressure as high as she did on admit. Review of Systems Review of Systems: All systems reviewed & are unremarkable except as noted in Subjective Physical Exam Constitutional: WD/WN, vitals as above Respiratory: normal respiratory effort, lungs clear to auscultation Cardiovascular: RRR, no murmur, no edema Gastrointestinal (Abdomen): normal bowel sounds, soft, nontender, no hepatos plenomegaly Skin: no rashes, warm and dry Neurologic: patellar DTR's 2+ bilat, sensation intact and PERRL, EOMI, accommodation nl, no face palsy, no dysarthria Psychiatric: A+Ox3, euthymic affect Results & Data Results & Data Vital Signs (Past 12 Hours) Vital Signs Pulse Pulse Resp BP Pulse Ox Pulse Ox O2 Del Method 05/15/22 07:59 61 16 123/57 L 93 Nasal Cannula 05/15/22 07:06 65 05/15/22 06:30 60 16 136/59 L 94 Nasal Cannula 05/15/22 03:30 60 18 121/72 90 Room Air 05/15/22 03:42 90 05/15/22 02:30 63 18 154/69 H 93 Nasal Cannula 05/15/22 00:33 82 20 159/71 H 97 Nasal Cannula 05/15/22 00:03 83 05/14/22 23:30 160/70 H 05/14/22 23:15 204/97 H 05/14/22 23:00 222/105 H 05/14/22 22:45 201/98 H 05/14/22 22:30 195/90 H 05/14/22 23:35 83 18 129/73 96 Nasal Cannula 05/14/22 22:00 79 16 165/69 H 95 Nasal Cannula 05/14/22 20:05 79 O2 Del Method O2 Flow Rate 05/15/22 07:59 2 05/15/22 07:06 05/15/22 06:30 2 05/15/22 03:30 05/15/22 03:42 Room Air 05/15/22 02:30 3 05/15/22 00:33 2 05/15/22 00:03 05/14/22 23:30 05/14/22 23:15 05/14/22 23:00 05/14/22 22:45 05/14/22 22:30 05/14/22 23:35 05/14/22 22:00 2 05/14/22 20:05 PG Care Time/CCT Total # of Minutes Spent Total Time Spent with Patient: Total time spent is greater than 50% in coordination of care (as documented) at patient's floor/unit and/or counseling patient: Coding Level of Care Code 66205 SUB INP/OBS CARE 350MIN Diagnoses Hypertensive emergency I16.1 Stage 3b chronic kidney disease N18.32 Dementia F03.90 Type 2 diabetes mellitus E11.9
[2022-05-15] MEDS: VALSARTAN 80 MG TAB PO SCH (09:06)
[2022-05-15] MEDS: VENLAFAXINE HCL XR 37.5 MG CAPXR PO SCH (09:07)
[2022-05-15] MEDS: amLODIPine BESYLATE 5 MG TAB PO SCH (09:07)
[2022-05-15] MEDS: allopurinoL 100 MG TAB PO SCH (09:07)
[2022-05-15] MEDS: INSULIN ASPART PER UNIT CHARGE SC SCH ×4 (09:45→20:28)
--- NOTE | 2022-05-15 12:23 | Ultrasound Report ---
RENAL ULTRASOUND HISTORY: Resistant hypertension. COMPARISON: Duplex renal ultrasound 07/28/2019. FINDINGS: Right kidney: 11.6 cm. No hydronephrosis. Normal corticomedullary differentiation and cortical thickn ess. Left kidney: 11.0 cm. There is a 4.4 x 3.2 x 2.5 cm parapelvic cyst. There is also a 1.1 cm exophytic cyst within the upper pole. No hydronephrosis. Normal corticomedullary differentiation and cortical thickness. Bladder: No bladder wall thickening. The bilateral ureteral jets were not identified. IMPRESSION: 1. No hydronephrosis. 2. Left renal cysts as described above. ACT 112: Negative or not required by law. Electronically signed by: Doug Pedersen M.D. 05/15/2022 12:22 PM
[2022-05-16] MEDS: VENLAFAXINE HCL XR 37.5 MG CAPXR PO SCH (08:19)
[2022-05-16] MEDS: allopurinoL 100 MG TAB PO SCH (08:19)
[2022-05-16] MEDS: GABAPENTIN 300 MG CAP PO SCH ×3 (08:20→21:52)
[2022-05-16] MEDS: FUROSEMIDE 20 MG TAB PO SCH ×2 (08:20→21:51)
[2022-05-16] MEDS: METOPROLOL TARTRATE 100 MG TAB PO SCH ×2 (08:20→21:52)
[2022-05-16] MEDS: VALSARTAN 80 MG TAB PO SCH (08:20)
[2022-05-16] MEDS: amLODIPine BESYLATE 5 MG TAB PO SCH (08:21)
[2022-05-16] MEDS: INSULIN ASPART PER UNIT CHARGE SC SCH ×4 (08:24→21:48)
[2022-05-16] MEDS: LANTUS PER UNIT CHARGE SQ SCH ×2 (08:24→21:48)
--- NOTE | 2022-05-16 17:21 | Hospitalist Progress Note ---
Date of Service May 16, 2022 Assessment & Plan (1) Hypertensive emergency: Plan: Initially presented with dysarthria and hypertension rapidly increasing to the 200s systolic. She did not have any focal weakness, but did have confusion, difficulty using a spoon, and dysarthria concerning for stroke Improved with nicardipine drip overnight, blood pressure has remained in the 130s to 140s systolic with hold of nicardipine drip No hemorrhage, mass effect, or evidence of acute territorial ischemia by CT criteria., Unremarkable CT angiogram of the brain/neck, brain MRI without acute intracranial hemorrhage or acute infarct CXR without acute findings Echo 55-60% Did evaluate for renal artery stenosis with renal ultrasound, no evidence of such Renal and and aldosterone levels pending Continue home valsartan, beta-soledad Added amlodipine 5 mg daily, has been on amlodipine in the past with complaints of leg swelling however in the setting of resistant hypertension we will trial 5 mg dosing and perhaps Oni obrien if dependent edema develops Blood pressure well controlled on this regimen (2) Stage 3b chronic kidney disease: Plan: Baseline creatinine 1.41.5, creatinine today 4/5 of 1.19 Continue valsartan, Lasix, allopurinol (3) Dementia: Plan: Symptoms resolved back to baseline, delirium precautions Patient seems to be getting delirious One-to-one sitter in the room Started melatonin and Zyprexa to be used nightly to encourage healthy sleep- wake cycle (4) Type 2 diabetes mellitus: Plan: Basal/bolus insulin, with adjustment as needed based on qACHS checks Plan DVT prophylaxis: SCDs Disposition: PCU Diet: Type II DM CODE STATUS: Full code PT/OT consult Disposition planning Hope to remove one-to-one sitter soon once delirium improved Admission and Anticipated Discharge Date Admission Date: May 14, 2022 Subjective Per nurse, the patient was agitated overnight. She did not sleep well at all and was hallucinating. She now has a one-to-one sitter in the room Review of Systems 2 Review of Systems: All systems reviewed & are unremarkable except as noted in Subjective Physical Exam Physical Exam: General: Awake, conversant Heart: S1, S2/regular rate and rhythm, no murmur rubs or gallops Lungs: Clear to auscultation bilaterally. Normal effort Abdomen: Soft/nontender/nondistended. No hepatosplenomegaly Extremities: No clubbing/cyanosis. No edema Behavior: Appropriate, cooperative Results & Data Results & Data Laboratory Results Abnormal lab results 05/15/22 05/16/22 05/16/22 Range/Units 20:18 08:02 11:44 POC Glucose 192 H 155 H 163 H (70-99) mg/dl 05/16/22 Range/Units 16:12 POC Glucose 186 H (70-99) mg/dl PG Care Time/CCT Total # of Minutes Spent Total Time Spent with Patient: Total time spent is greater than 50% in coordination of care (as documented) at patient's floor/unit and/or counseling patient: Coding Level of Care Code 22079 SUB INP/OBS CARE 2/35MIN Diagnoses Hypertensive emergency I16.1 Stage 3b chronic kidney disease N18.32 Dementia F03.90 Type 2 diabetes mellitus E11.9
[2022-05-16] MEDS ORDERED: MELATONIN 3 MG TAB PO PRN (17:24)
[2022-05-16] MEDS: ATORVASTATIN 10 MG TAB PO SCH (21:51)
[2022-05-16] MEDS: FAMOTIDINE 20 MG TAB PO SCH (21:51)
[2022-05-16] MEDS: CETIRIZINE HCL 10 MG TABLET PO SCH (21:51)
[2022-05-16] MEDS: OLANZapine 5 MG TABLET PO SCH (21:57)
[2022-05-17] MEDS: INSULIN ASPART PER UNIT CHARGE SC SCH ×4 (08:18→21:01)
[2022-05-17] MEDS: LANTUS PER UNIT CHARGE SQ SCH ×2 (08:18→21:02)
[2022-05-17] MEDS: amLODIPine BESYLATE 5 MG TAB PO SCH (08:19)
[2022-05-17] MEDS: FUROSEMIDE 20 MG TAB PO SCH ×2 (08:19→21:00)
[2022-05-17] MEDS: allopurinoL 100 MG TAB PO SCH (08:19)
[2022-05-17] MEDS: METOPROLOL TARTRATE 100 MG TAB PO SCH ×2 (08:20→21:00)
[2022-05-17] MEDS: GABAPENTIN 300 MG CAP PO SCH ×3 (08:20→21:29)
[2022-05-17] MEDS: VENLAFAXINE HCL XR 37.5 MG CAPXR PO SCH (08:21)
[2022-05-17] MEDS: VALSARTAN 80 MG TAB PO SCH (08:21)
--- NOTE | 2022-05-17 14:08 | Hospitalist Progress Note ---
Date of Service May 17, 2022 Assessment & Plan (1) Hypertensive emergency: Plan: Initially presented with dysarthria and hypertension rapidly increasing to the 200s systolic. She did not have any focal weakness, but did have confusion, difficulty using a spoon, and dysarthria concerning for stroke Improved with nicardipine drip overnight, blood pressure has remained in the 130s to 140s systolic with hold of nicardipine drip No hemorrhage, mass effect, or evidence of acute territorial ischemia by CT criteria., Unremarkable CT angiogram of the brain/neck, brain MRI without acute intracranial hemorrhage or acute infarct CXR without acute findings Echo 55-60% Did evaluate for renal artery stenosis with renal ultrasound, no evidence of such Renal and and aldosterone levels pending Continue home valsartan, beta-soledad Added amlodipine 5 mg daily, has been on amlodipine in the past with complaints of leg swelling however in the setting of resistant hypertension we will trial 5 mg dosing and perhaps Oni obrien if dependent edema develops Blood pressure well controlled on this regimen (2) Stage 3b chronic kidney disease: Plan: Baseline creatinine 1.41.5, creatinine today 4/5 of 1.19 Continue valsartan, Lasix, allopurinol (3) Dementia: Plan: Symptoms resolved back to baseline, delirium precautions Patient seems to be getting delirious Discontinue one-to-one sitter in the room and plan to discharge patient tomorrow Started melatonin and Zyprexa to be used nightly to encourage healthy sleep- wake cycle (4) Type 2 diabetes mellitus: Plan: Basal/bolus insulin, with adjustment as needed based on qACHS checks (5) Hypertensive encephalopathy: Plan: Due to hypertensive emergency Now resolved Plan DVT prophylaxis: SCDs Disposition: PCU Diet: Type II DM CODE STATUS: Full code PT/OT consult Discontinue 1 1 sitter Disposition plan to discharge tomorrow Admission and Anticipated Discharge Date Admission Date: May 14, 2022 Subjective Patient feels well. Slept well through the night per nurse and sitter in the room. Still slightly confused but not agitated Physical Exam Physical Exam: General: Awake, conversant. Pleasantly confused. Heart: S1, S2/regular rate and rhythm, no murmur rubs or gallops Lungs: Clear to auscultation bilaterally. Normal effort Abdomen: Soft/nontender/nondistended. No hepatosplenomegaly Extremities: No clubbing/cyanosis. No edema Behavior: Appropriate, cooperative Results & Data Results & Data Vital Signs (Past 12 Hours) Vital Signs Temp Pulse Pulse Resp BP Pulse Ox O2 Del Method 05/17/22 12:13 36.5 C 57 L 19 139/80 92 Room Air 05/17/22 07:30 Room Air 05/17/22 07:30 58 L 05/17/22 08:31 36.8 C 61 18 156/76 H 90 Room Air 05/17/22 03:00 36.7 C 60 18 170/87 H 93 Room Air PG Care Time/CCT Total # of Minutes Spent Total Time Spent with Patient: Total time spent is greater than 50% in coordination of care (as documented) at patient's floor/unit and/or counseling patient: Coding Level of Care Code 42333 SUB INP/OBS CARE 2/35MIN Diagnoses Hypertensive emergency I16.1 Stage 3b chronic kidney disease N18.32 Dementia F03.90 Type 2 diabetes mellitus E11.9 Hypertensive encephalopathy I67.4
[2022-05-17] MEDS: ATORVASTATIN 10 MG TAB PO SCH (21:00)
[2022-05-17] MEDS: FAMOTIDINE 20 MG TAB PO SCH (21:00)
[2022-05-17] MEDS: CETIRIZINE HCL 10 MG TABLET PO SCH (21:00)
[2022-05-17] MEDS: OLANZapine 5 MG TABLET PO SCH (21:01)
[2022-05-18] MEDS: INSULIN ASPART PER UNIT CHARGE SC SCH ×2 (08:21→12:09)
[2022-05-18] MEDS: LANTUS PER UNIT CHARGE SQ SCH (08:22)
[2022-05-18] MEDS: GABAPENTIN 300 MG CAP PO SCH (08:27)
[2022-05-18] MEDS: amLODIPine BESYLATE 5 MG TAB PO SCH (08:28)
[2022-05-18] MEDS: FUROSEMIDE 20 MG TAB PO SCH (08:28)
[2022-05-18] MEDS: VALSARTAN 80 MG TAB PO SCH (08:28)
[2022-05-18] MEDS: VENLAFAXINE HCL XR 37.5 MG CAPXR PO SCH (08:28)
[2022-05-18] MEDS: allopurinoL 100 MG TAB PO SCH (08:28)
[2022-05-18] MEDS: METOPROLOL TARTRATE 100 MG TAB PO SCH (08:28)
--- NOTE | 2022-05-18 11:56 | Discharge Summary ---
Date of Service May 18, 2022 Admission HPI Per Admitting Provider Kassy Mireles is a 77-year-old female with a past medical history of dementia, DM 2, hypertension, CKD who presents with sudden onset confusion and disorientation where she was using a fork incorrectly, and then putting her hand into the food rather than the fork and had difficulty speaking. Patient has history of vascular dementia, but her current symptoms were sudden onset and starkly different from her baseline. No leukocytosis Hemoglobin normal Creatinine with fluctuating baseline, appears around 1.4 most recently. Admitting creatinine 1.25 Admission Exam Per Admitting Provider General: On initial assessment appears ill, vomiting, with headache. HEENT: Atraumatic, normocephalic. Pupils equal and reactive to light. Vision and hearing intact Pulm: CTAB A&P. -wheezes, -rales, -rhonchi. Symmetrical chest rise. No increased work of breathing. No respiratory distress. Cardiac: RRR, -mrg. Radial pulses intact and symmetrical. Abdominal: Abdomen soft, nontender, patient nauseous and vomiting On reassessment post Vasotec and nicardipine patient's nausea/vomiting have completely resolved. Appears nondistressed, greatly improved. No headache. No vomiting. No neurodeficits, is oriented to name, place, and year and answers questions appropriately Principal Diagnosis Hypertensive emergency, hypertensive encephalopathy, hospital-acquired delirium Discharge Exam General: Awake, conversant Heart: S1, S2/regular rate and rhythm, no murmur rubs or gallops Lungs: Clear to auscultation bilaterally. Normal effort Abdomen: Soft/nontender/nondistended. No hepatosplenomegaly Extremities: No clubbing/cyanosis. No edema Behavior: Appropriate, cooperative Discharge Data Allergies Allergy/AdvReac Type Severity Reaction Status Date / Time guaifenesin [From Mucinex] Allergy Unknown unknown Verified 05/14/22 17:45 fenofibrate Allergy Rash Verified 05/14/22 17:45 Consultations 05/14/22 15:27 ED Decision to Admit Stat Ordered Studies 05/14/22 11:58 CT angio head w con Stat CT angio neck with con Stat CT head/brain wo con Stat 05/14/22 19:42 MRI Brain [MR brain wo con] Urgent 05/15/22 10:30 US Renal Bladder [US renal/blad retro comp] Routine Hospital Course (1) Hypertensive emergency: Initially presented with dysarthria and hypertension rapidly increasing to the 200s systolic. She did not have any focal weakness, but did have confusion, difficulty using a spoon, and dysarthria concerning for stroke Improved with nicardipine drip overnight, blood pressure has remained in the 130s to 140s systolic with hold of nicardipine drip No hemorrhage, mass effect, or evidence of acute territorial ischemia by CT criteria., Unremarkable CT angiogram of the brain/neck, brain MRI without acute intracranial hemorrhage or acute infarct CXR without acute findings Echo 55-60% Did evaluate for renal artery stenosis with renal ultrasound, no evidence of such Renal and and aldosterone levels pending Continue home valsartan, beta-soledad Added amlodipine 5 mg daily, has been on amlodipine in the past with complaints of leg swelling however in the setting of resistant hypertension we will trial 5 mg dosing and perhaps Oni obrien if dependent edema develops Blood pressure well controlled on this regimen Discharged on this regimen (2) Stage 3b chronic kidney disease: Baseline creatinine 1.41.5, creatinine today /5 of 1.19 Continue valsartan, Lasix, allopurinol (3) Dementia: Symptoms resolved back to baseline, delirium precautions During the hospital stay, the patient did have some issues with hospital- acquired delirium requiring melatonin and Zyprexa to assist with healthy sleep- wake cycle. Today patient does not delirious anymore and is happy to know that she is being discharged today (4) Type 2 diabetes mellitus: Basal/bolus insulin, with adjustment as needed based on qACHS checks (5) Hypertensive encephalopathy: Due to hypertensive emergency Now resolved Plan DVT prophylaxis: SCDs Disposition: Home Diet: Type II DM CODE STATUS: Full code Discharge to home today. Spoke to [id number] to give her an update. Total Time Total Time Spent Total Time Spent (In Minutes): 35 Discharge Plan Discharge Items Patient Disposition: Home - Home Health Services Reason For Visit: HYPERTENSIVE EMERGENCY Discharge Diagnosis: Hypertensive emergency Activity: Resume your previous activity Non-emergency contact: Primary Care Provider Call non-emergency contact if: you have any medication questions and your symptoms worsen Follow-up/Referrals: Shelia Boyd DO [Primary Care Provider] - 05/23/22 10:20 am Diet: Heart Healthy Addtl Attending Provider Instructions: Advised to follow-up with PCP in 1 week Pending Studies at Discharge: No Stand-Alone Forms: My [facility] Medications and DC Order Prescriptions: New amlodipine [Norvasc] 5 mg Tablet 5 mg PO QAM Qty: 30 0RF Continued gabapentin 300 mg capsule 300 mg PO TID Qty: 270 2RF metoprolol tartrate 100 mg tablet 100 mg PO BID Qty: 180 3RF cholecalciferol (vitamin D3) 50 mcg (2,000 unit) capsule 50 mcg PO TID Qty: 90 8RF (DME) pen needle, diabetic [BD Yohana 2nd Gen Pen Needle] 32 gauge x 5/32" needle See Rx Instructions .Route Qty: 100 5RF Rx Instructions: to be used with insulin daily valsartan 160 mg tablet 320 mg PO QAM furosemide [Lasix] 20 mg tablet 20 mg PO BID Qty: 180 1RF insulin glargine [Lantus Solostar U-100 Insulin] 100 unit/mL (3 mL) insulin pen 30 unit subcut QAM Qty: 15 2RF allopurinol 100 mg tablet 100 mg PO QAM Qty: 90 3RF venlafaxine 37.5 mg capsule,extended release 24hr 37.5 mg PO QAM Qty: 90 3RF multivitamin [Daily Multi-Vitamin] Tablet 1 tab PO DAILY famotidine 20 mg tablet 20 mg PO QPM (DME) lancets [OneTouch Delica Lancets] 33 gauge misc See Dose Instructions .ROUTE .MEDSUPPLY Qty: 100 0RF Rx Instructions: test once daily. Dx E11.9 cetirizine 10 mg Tablet 10 mg PO QPM atorvastatin 10 mg tablet 10 mg PO HS Discharge Orders: Discharge Order (Routine); Ordered 05/18/22 Ordered By: Lyudmila Amaro Admission Data Admit Date/Time: 05/14/22 19:42 Attending Provider: Lyudmila Amaro Admit Provider: Mac Ramos Primary Care Provider: Shelia Boyd Other Providers: Mac Ramos ; Williams Lanier [facility] [place] Other Interventions: Discharge Summary Assessment (RN) Last Done: 05/18/22 14:28 Coding Level of Care Code 98064 INP/OBS DISCH >30 MIN Diagnoses Hypertensive emergency I16.1 Stage 3b chronic kidney disease N18.32 Dementia F03.90 Type 2 diabetes mellitus E11.9 Hypertensive encephalopathy I67.4
== END 2022-05-18 14:49 | disposition home health service (06) | DRG 78 ==
LOC: ED 11:27 → SUATTDRO 19:42 → EDINP 19:42 → 2S 21:50